=== PATIENT | female | born 1970 | race Caucasian/White ===

== ENCOUNTER 2021-10-25 00:01 | Day surgery (SDC) | payer OTHER, SELFPAY ==
[2021-09-07 09:42] VITALS: BMI 44.6
--- NOTE | 2021-10-25 07:28 | WPDANESEPPF ---
Anes - Initial Pre Proc Eval Procedure: Operation Date: 10/25/21 10:30 Proposed Procedures p Screening Colonoscopy - Clifton Lee MD Date/Time: 10/25/21 07:28 Surgeon: Clifton Lee MD Pre Op Diagnosis: neoplasm screening Patient Data Age: 51 Gender: F Height: 1.63 m Weight: 118 kg Allergies Allergy/AdvReac Type Severity Reaction Status Date / Time codeine Allergy Unknown Nausea Verified 10/25/21 09:32 Home Medications Medication Instructions Recorded Confirmed Type escitalopram oxalate 20 mg tablet 20 tablet PO DAILY 09/07/21 10/10/21 History hydrochlorothiazide 12.5 mg tablet 12.5 tablet PO DAILY 09/07/21 10/10/21 History lisinopril 20 mg tablet 20 tablet PO DAILY 09/07/21 10/10/21 History meloxicam 15 mg tablet 15 tablet PO DAILY 09/07/21 10/10/21 History Patient hx anesthesia problems: none Family hx anesthesia problems: none Results Review: All pre-operative results and documents have been reviewed as part of the pre-operative evaluation. [facility] Past Medical History Medical History (Updated 10/25/21 @ 09:50 by Clifton Lee MD) HTN (hypertension) Morbid obesity with BMI of 40.0-44.9, adult Social History Social History Smoking status: Never smoker Alcohol intake: current Drinks per week: 4 Substance use type: does not use Living arrangements: with family Spiritual care concerns: No Anes - Eval Final PreProcedure Day of Procedure 10/25/21 07:28 Patient weight: morbidly obese Heart: regular rate and rhythm Lungs: clear to auscultation and normal air movement Airway: Mallampati scale class II Neurological: alert and oriented Last oral intake: >/= 8 hours ASA classification: III Emergent: no Anesthetic plan: proceed Anesthesia type and monitoring: general GIVS Results Review: All pre-operative results and documents have been reviewed as part of the pre-operative evaluation. Informed Consent: The patient's anesthetic plan and its attendant risks and benefits were discussed with the patient/family/POA. Questions were solicited and answers provided to the satisfaction of the patient/family/POA.
[2021-10-25 09:29] VITALS: BP 147/100; PULSE 95; RESP 18; TEMP 36.7; O2SAT 100
[2021-10-25] MEDS: LACTATED RINGERS 1,000 ML 150 ML IV CONT (09:39)
--- NOTE | 2021-10-25 09:49 | PM.IMHP ---
H&P: HPI History of Present Illness Date/Time: 10/25/21 09:49 Chief Complaint: Neoplasia screening. Narrative: This is a 51-year-old white female patient seen in evaluation for neoplasia screening. Patient states that her current weight appetite bowel movement are normal. Patient denies abdominal pain. She has had no bleeding. Family history is noncontributory. Patient presents today for neoplasia screening colonoscopy. Review of Systems Review of Systems: Review of systems noncontributory. [facility] Past Medical History Medical History (Updated 10/25/21 @ 09:50 by Clifton Lee MD) HTN (hypertension) Morbid obesity with BMI of 40.0-44.9, adult Social History Social History Smoking status: Never smoker Alcohol intake: current Drinks per week: 4 Substance use type: does not use Living arrangements: with family Spiritual care concerns: No Meds Home Medications and Allergies Home Medications Medication Instructions Recorded Confirmed Type escitalopram oxalate 20 mg tablet 20 tablet PO DAILY 09/07/21 10/10/21 History hydrochlorothiazide 12.5 mg tablet 12.5 tablet PO DAILY 09/07/21 10/10/21 History lisinopril 20 mg tablet 20 tablet PO DAILY 09/07/21 10/10/21 History meloxicam 15 mg tablet 15 tablet PO DAILY 09/07/21 10/10/21 History Allergies Allergy/AdvReac Type Severity Reaction Status Date / Time codeine Allergy Unknown Nausea Verified 10/25/21 09:32 Vital Signs Vital Signs - 24 hr 10/25/21 09:29 Temperature 98.1 F Pulse Rate 95 Respiratory Rate 18 Blood Pressure 147/100 H Pulse Oximetry 100 Oxygen Delivery Room Air Exam Narrative: Physical exam reveals patient to be alert. Vital signs stable. HEENT exam is unremarkable. Patient is anicteric. Lungs are clear to auscultation and percussion. Heart is without murmur or extra sounds. Abdominal exam bowel sounds are present soft nontender with no organomegaly. Digital external rectal exam is normal. Assessment and Plan Assessment and plan (1) Morbid obesity with BMI of 40.0-44.9, adult: Code(s): E66.01 - Morbid (severe) obesity due to excess calories; Z68.41 - Body mass index [BMI] 40.0-44.9, adult Status: Acute Assessment and Plan: Weight loss with increased activity decrease calorie intake is encouraged. (2) Encounter for screening colonoscopy: Code(s): Z12.11 - Encounter for screening for malignant neoplasm of colon Status: Acute Assessment and Plan: Patient presents for neoplasia screening colonoscopy. Appears to be at average risk for colon polyps. Further recommendations will be given after endoscopy.
[2021-10-25 10:13] VITALS: BP 136/88; PULSE 82; RESP 22; O2SAT 99
[2021-10-25 10:23] VITALS: BP 144/90; PULSE 79; RESP 19; O2SAT 100
[2021-10-25 10:33] VITALS: BP 148/98; PULSE 77; RESP 20; O2SAT 100
== END 2021-10-25 10:43 | disposition home or self-care (01) ==
PROVIDERS: PCP Physician Assistant Medical; Visit Provider Internal Medicine Gastroenterology
PROC: 0DJD8ZZ Inspection of Lower Intestinal Tract, Via Natural or Artificial Opening Endoscopic (ICD-10-PCS; CPT 45378; principal; 2021-10-25 10:30)
DX: Z12.11 Encounter for screening for malignant neoplasm of colon (principal); I10 Essential (primary) hypertension; E66.01 Morbid (severe) obesity due to excess calories; Z68.41 Body mass index [BMI] 40.0-44.9, adult
CPT/HCPCS: 45378; J2704; J7120

== ENCOUNTER 2022-09-08 17:20 | Emergency (ER) | payer OTHER, SELFPAY ==
--- NOTE | ~2022-09-08 | XR_ITS ---
EXAMINATION: XR ankle RT min 3V DATE: 09/08/2022 17:48 INDICATION: Right ankle swelling. TECHNIQUE: 4 views of right ankle were obtained. COMPARISON: None. FINDINGS: Bone alignment is normal. No acute fracture. There is severe ankle joint osteoarthritis. Th ere is heterotopic ossification distal to medial malleolus. There is polyarticular osteoarthritis of the midfoot, severe at medial Lisfranc joint. There is an enthesophyte at plantar aspect of calcaneal tuberosity. Ankle soft tissue swelling is noted. There is thickening of the Achilles tendon, consist ent with tendinopathy. IMPRESSION: 1. 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 2. Achilles tendinopathy. Reviewed, dictated and finalized at location E.
[2022-09-08 17:32] VITALS: BP 158/85; PULSE 94; RESP 20; TEMP 36.8; O2SAT 100
--- NOTE | 2022-09-08 17:42 | ED.EXTPRO ---
HPI - Extremity Problem General Chief complaint: Extremity Problem,Nontraumatic Stated complaint: swelling to ankles Time Seen by Provider: 09/08/22 17:48 Source: patient Mode of arrival: ambulatory Limitations: no limitations History of Present Illness HPI Narrative: 52-year-old female presenting for complaint of right ankle pain and swelling for 6 days. She denies injury. She states at the onset she was at an event requiring her to be on her feet, then the following day had a lot of walking, which caused pain. Pain is at rest, worse with ambulating or moving the ankle. Endorses wearing well fitting tennis shoes and has been elevating and icing the ankle all week. Also taking meloxicam for pain. States she contacted a waste chopper, but was unable to be seen for several weeks. Scheduled to f/u with pcp in 4 days. Denies redness, bruising, numbness, tingling, weakness of the extremity. Related Data Home Medications Medication Instructions Recorded Confirmed hydrochlorothiazide 12.5 mg tablet 12.5 tablet PO DAILY 09/07/21 09/08/22 lisinopril 20 mg tablet 20 tablet PO DAILY 09/07/21 09/08/22 meloxicam 15 mg tablet 15 tablet PO DAILY 09/07/21 09/08/22 Allergies Allergy/AdvReac Type Severity Reaction Status Date / Time codeine Allergy Unknown Nausea Verified 09/08/22 17:27 Review of Systems Review of Systems: CONSTITUTIONAL: Denies body aches, fever, chills EYES: Denies visual changes ENT: Denies rhinorrhea, congestion CARDIOVASCULAR: Denies chest pain, palpitations, or edema. RESPIRATORY: Denies cough or dyspnea. GASTROINTESTINAL: Denies abdominal pain, nausea, vomiting, or diarrhea. SKIN: Denies rash, itching, or wounds. MUSCULOSKELETAL: per HPI NEUROLOGIC: Denies headache, numbness, tingling, or weakness. All systems reviewed & are unremarkable except as noted in HPI and below PMFSH Past Medical History Medical History Anxiety and depression HTN (hypertension) Morbid obesity with BMI of 40.0-44.9, adult Screening mammogram, encounter for Surgical History Surgical History H/O colonoscopy 10/25/21-repeat 10 years History of bilateral breast reduction surgery (~1985) History of hernia repair (~2007) History of surgery on right wrist (05/30/16) rt wrist fracture Family History Family History Father Hypertension Heart disease Mother Breast cancer Social History Social History Smoking status: Never smoker Alcohol intake: current Drinks per week: 4 Substance use: never Substance use type: does not use Living arrangements: other Additional living arrangements comments: Occupation/Education: occupation Additional occupation/education comments: teacher Gender identity (if verbalized by the patient): Female Sexual Orientation (if Verbalized by the Patient): Straight or Heterosexual Spiritual care concerns: No Comments At time of signature, I have reviewed and agree with nursing past medical, surgical, social and family history unless otherwise noted. Please see nursing chart for further information. There is no relevant family history pertinent to the presenting complaint Exam Narrative: GENERAL: Well-appearing CHEST: Speaks in full sentences. No respiratory distress. HEART: Regular rate and rhythm. Normal and equal peripheral pulses. EXTREMITIES: Right lateral ankle swelling, no bruising or erythema, nontender malleolus. Right foot has normal sensation; slightly limited strength and range of motion with flexion/extension/rotation due to pain with movement. Tenderness to mid achilles. Raised area to right mid dorsal foot c/w spur. No open wounds, or obvious deformity; alignment normal, pulse palpable and equal bilaterally, skin warm, dry, pink
== END 2022-09-08 18:18 | disposition home or self-care (01) ==
PROVIDERS: Emergency Provider Nurse Practitioner Family; PCP Registered Nurse
DX: M76.61 Achilles tendinitis, right leg (principal); I10 Essential (primary) hypertension; E66.01 Morbid (severe) obesity due to excess calories; Z68.39 Body mass index [BMI] 39.0-39.9, adult
CPT/HCPCS: 73610; 99213; G0463

== ENCOUNTER 2024-02-13 16:18 | Emergency (ER) | payer OTHER, SELFPAY ==
--- NOTE | ~2024-02-13 | XR_ITS ---
EXAMINATION: XR chest 2V Exam Date/Time: 02/13/2024 16:40 CDT HISTORY: Cough, chest congestion Comparison: None. RESULT: Lines, tubes, and devices: None. Lungs and pleura: Clear. Cardiomediastinal silhouette: Unremarkable. Other: No acute osseous or upper abdominal finding. IMPRESSION: No acute cardiopulmonary process. Reviewed, dictated and finalized at location K.
[2024-02-13 16:23] VITALS: BP 139/86; PULSE 85; RESP 20; TEMP 36.6; O2SAT 99
--- NOTE | 2024-02-13 16:23 | ED_ITS ---
HPI - URI/Sore Throat General Chief Complaint: Upper Respiratory Infection Stated Complaint: Sinus Time Seen by Provider: 02/13/24 16:40 Source: patient, RN notes reviewed and old records reviewed Mode of arrival: ambulatory Limitations: no limitations History of Present Illness HPI Narrative: 53-year-old female presents to the [facility] with 2 weeks of sinus congestion, postnasal drainage, sinus pressure. Patient states a couple days ago started with some increased postnasal drainage and a cough. Reports that she feels like she has rattling in her chest. Treatments prior to arrival: cold medicine Related Data Home Medications Medication Instructions Recorded Confirmed hydrochlorothiazide 12.5 mg tablet 12.5 tablet PO DAILY 09/07/21 02/13/24 lisinopril 20 mg tablet 20 tablet PO DAILY 09/07/21 02/13/24 meloxicam 15 mg tablet 15 tablet PO DAILY 09/07/21 02/13/24 Allergies Allergy/AdvReac Type Severity Reaction Status Date / Time codeine Allergy Unknown Nausea Verified 02/13/24 16:20 Review of Systems Review of Systems: All systems reviewed & are unremarkable except as noted in HPI and below Constitutional: Constitutional: Reports no additional constitutional complaints ENT: Reports as per HPI Cardiovascular: Cardiovascular: Reports no additional cardiovascular complaints, Denies chest pain and Denies dyspnea Respiratory: Respiratory: Reports as per HPI, Reports chest congestion, Reports cough and Denies dyspnea Gastrointestinal: Gastrointestinal: Reports no additional gastrointestinal complaints, Denies abdominal pain, Denies nausea and Denies vomiting Musculoskeletal: Musculoskeletal: Reports no additional musculoskeletal complaints Integumentary/Breasts: Skin/Breast: Reports system reviewed and no additional complaints, except as docu PMFSH Past Medical History Medical History Anxiety and depression HTN (hypertension) Morbid obesity with BMI of 40.0-44.9, adult Screening mammogram, encounter for Surgical History Surgical History H/O colonoscopy 10/25/21-repeat 10 years History of bilateral breast reduction surgery (~1985) History of hernia repair (~2007) History of surgery on right wrist (05/30/16) rt wrist fracture Family History Family History Father Hypertension Heart disease Mother Breast cancer Social History Social History Smoking status: Never smoker Alcohol intake: current Drinks per week: 4 Substance use: never Substance use type: does not use Living arrangements: other Additional living arrangements comments: Occupation/Education: occupation Additional occupation/education comments: teacher Gender identity (if verbalized by the patient): Female Sexual Orientation (if Verbalized by the Patient): Straight or Heterosexual Spiritual care concerns: No Comments At the time of my signature, I reviewed and agree with the nursing past medical, surgical, social, and family history. There is no relevant family history pertinent to the patient complaint. Exam Const: General: cooperative, healthy appearing, comfortable, no acute distress, well developed, alert and well nourished Nutritional Appearance: well nourished and obese Orientation/consciousness: patient oriented x3 Limitations: no limitations HENMT: Head: normal to inspection Ears: hearing grossly normal bilaterally, external ears normal, TM's normal bilaterally, EAC's normal, mastoids normal and no periauricular adenopathy Face/Nose/Sinus: Normal external nose present, normal facial exam and face symmetric Face and sinus: normal facial exam and face symmetric Mouth: Yes Normal oral and palatal mucosa present, Yes lip normal and Yes tongue normal Throat: uvula midline, postnasal drainage and no uvular edema Eyes: General: appearance normal, both eyes and all related structures Alignment and Position: alignment normal Periorbital: periorbital findings normal Neck: Neck: normal visual inspection, full ROM, no lymphadenopathy and no meningeal signs Chest: Chest palpation & inspection: normal inspection of the chest Resp: Effort & Inspection: normal respiratory effort and able to speak in complete sentences Auscultation: no crackles, no rales, no rhonchi and wheezes expiratory wheezes and right lower Cardio: Rate: regular rate Skin: General skin exam: normal color and no rashes or lesions noted Lesions: no lesions Rashes: no rashes Wounds: no wounds Neuro: General: patient oriented x3, gait normal, tone normal, moves all extremities and no meningeal signs Cognition (Neuro): normal cognition Speech: normal speech Gait exam (Neuro): Normal gait present Extrem: General: normal to inspection, full ROM, capillary refill normal and normal gait Psych: Appearance: grossly normal and well kempt Mental Status: mental status grossly normal Speech and movement: Normal speech and movement present and Clear speech present Affect: normal affect Attitude: cooperative Course Course Level of Care: Express Care Visit Vital Signs Vital signs: Vital Signs Temperature 98 F 02/13/24 16:23 Pulse Rate 85 02/13/24 16:23 Respiratory Rate 20 02/13/24 16:23 Blood Pressure 139/86 02/13/24 16:23 Pulse Oximetry 99 02/13/24 16:23 Oxygen Delivery Room Air 02/13/24 16:23 Temperature 98 F 02/13/24 16:23 Pulse Rate 85 02/13/24 16:23 Respiratory Rate 20 02/13/24 16:23 Blood Pressure 139/86 02/13/24 16:23 Pulse Oximetry 99 02/13/24 16:23 Oxygen Delivery Room Air 02/13/24 16:23 Reviewed MDM - URI/Sore Throat MDM Narrative Medical decision making narrative: Patient sitting comfortably in exam room. Nontoxic, vitals stable. Patient in no acute distress Patient presents with 2 week history of sinus congestion, developed cough, concern for pneumonia Treating based on 2 weeks sinusitis, x-ray was negative for pneumonia Patient appropriate for outpatient treatment and follow-up Discharge instructions reviewed with patient, as well as provided in writing per nursing staff. The instructions also include specific and strict return/GO TO THE ER as well as f/u information. All questions have been answered, and the patient deny any further questions with discharge and discharge plan. Some parts of this dictation were generated by voice recognition software and may contain typographical and/or grammatical inaccuracies. Differential Diagnosis Differential diagnosis: Likely upper respiratory infection, otitis media, sinusitis, viral infection and bronchitis Imaging Data Radiologist's impression: EXAMINATION: XR chest 2V Exam Date/Time: 02/13/2024 16:40 CDT HISTORY: Cough, chest congestion Comparison: None. RESULT: Lines, tubes, and devices: None. Lungs and pleura: Clear. Cardiomediastinal silhouette: Unremarkable. Other: No acute osseous or upper abdominal finding. IMPRESSION: No acute cardiopulmonary process. Critical Care Time Critical Care Time Critical Care Time: No Discharge Plan Discharge Clinical Impression: Bronchitis, Sinusitis Patient Disposition: Home, Self-Care Condition: Stable Instructions: Antibiotic Form, Acute Bronchitis (ED), Rhinosinusitis (DC) Additional Instructions: Your chest x-ray did not show signs of a pneumonia. Your symptoms are likely due to a viral illness, which is not treated with antibiotics. Viral symptoms are usually the worst the for 7-10 days, can linger for several weeks -Alternate Tylenol and Motrin per package directions for fever or pain. -Antihistamine medication such as Benadryl at night and Zyrtec/Claritin/Love during the day can help improve symptoms. -doing daily nasal irrigations can help relieve pressure your sinuses. Things like a Neti pot -Use Flonase twice a day for 5 days then daily to help reduce the inflammation and dry up your sinuses. -You can also use Mucinex. Be sure to drink plenty of water with this medication at least 8 ounces with every dose and it is important to drink 8 to 10 glasses of water per day. Water is a natural decongestant -Eat and drink things that are easy to swallow, like tea or soup, or popsicles. -Oral rinses such as: Salt water gargles and/or may use topical anesthetic (eg. Chloraseptic spray) or lozenges to relieve dryness or throat pain). -Frequent hand washing or hand hiv cts specialist is one of the best ways to prevent spread of infection. -Using a vaporizer or humidifier at night will also help thin secretions and help with coughing up phlegm. -Follow up with primary care provider in 3-5 days if condition is not improving - For new or worsening symptoms go directly to the nearest ER Patient Language: Angolan Prescriptions: New albuterol sulfate 90 mcg/actuation HFA aerosol inhaler 2 puff inhalation QID PRN (Reason: shortness of breath or wheezing) Qty: 6.7 0RF doxycycline monohydrate 100 mg tablet 100 mg PO BID Qty: 14 0RF No Action meloxicam 15 mg tablet 15 tablet PO DAILY lisinopril 20 mg tablet 20 tablet PO DAILY hydrochlorothiazide 12.5 mg tablet 12.5 tablet PO DAILY escitalopram oxalate 20 mg tablet 20 mg PO DAILY Qty: 90 0RF Rx Instructions: needs appointment for any further refills Follow-up/Referrals: Deanna,BLOSSOM Stark [Primary Care Provider] - 2 Weeks ([facility] care follow up ) Stand Alone Forms: Work/School Release IP Time of Disposition: 16:51
== END 2024-02-13 17:00 | disposition home or self-care (01) ==
PROVIDERS: Emergency Provider Nurse Practitioner; PCP Registered Nurse
DX: J40 Bronchitis, not specified as acute or chronic (principal); J32.9 Chronic sinusitis, unspecified; I10 Essential (primary) hypertension; E66.01 Morbid (severe) obesity due to excess calories; Z68.37 Body mass index [BMI] 37.0-37.9, adult
CPT/HCPCS: 71046; 99213; G0463

== ENCOUNTER 2024-12-05 11:43 | Outpatient (CLI) | payer OTHER, SELFPAY ==
--- OUTSIDE RECORDS SUMMARY | 2024-12-05 11:47 | XMS_ITS | Clinical Summary ---
Author Organization [facility] [employer] Address [address] [facility] [place] [address] Care Team Providers Care Director Loss Prevention Name Role Phone DeannaMi Anna AMBROCIO-CLAM DIGGER Primary Care Provider Source Comments [facility],non-owned Affiliates and Associated Physician Practices is amultiple site organization consisting of ambulatory clinics and hospital sitesin [place], [place], [place] and [place]. This disclosure is being madepursuant to the Care Everywhere program and may not contain all information available regarding this patient. Last updated 18.[facility] Allergies Active Allergy Reactions Criticality Noted Date Comments Codeine Dizziness,Nausea and /or Vomiting,Unknown,Vomiting 01/14/1986 Medications * Be aware that medications may not be up to date on this document. Alwaysverify current medications with the patient. lisinopril (PRINIVIL; ZESTRIL) 20 MG tablet 09/09/19 22 Active hydroCHLOROthiazid e (HYDRODIURIL) 12.5 MG 09/09/19 22 Active escitalopram (Lexapro) 20 MG tablet 04/21/19 23 Active buPROPion XL 24hr (Wellbutrin-XL) 150 MG tablet 08/02/19 24 Active metFORMIN ER 24hr (Glucophage XR) 500 MG tablet Take 1 (one) tablet by mouth daily with dinner 07/28/19 24 Active aspirin (Aspirin) 325 MG tablet Take 1 (one) tablet by mouth once daily 35 tablet 08/27/19 24 Active docusate sodium (Colace) 100 MG capsule Take 1 (one) capsule by mouth once daily 30 capsule 08/27/19 24 Active Additional Information Patient not taking.Reported on 01/23/2024 oxyCODONE-acetamin ophen (Percocet) 10-325 MG tabletIndications: Acute right ankle pain Take 1 (one) tablet by mouth every 6 hours as needed for Pain 42 tablet 08/27/19 24 Active ondansetron, disintegrating, (Zofran ODT) 4 MG tablet Take 2 (two) tablets by mouth every 8 hours as needed for Nausea/Vomiting Allow tablet to dissolve on the tongue 30 tablet 08/27/19 24 Active sulfamethoxazole-t rimethoprim (Bactrim DS; Septra DS) 800-160 MG tablet Take 1 (one) tablet by mouth 2 times daily 28 tablet 10/16/19 24 Active Additional Information Patient not taking.Reported on 01/23/2024 LORazepam (Ativan) 0.5 MG tablet TAKE 1 TABLET(0.5 MG) BY MOUTH EVERY 6 HOURS NEEDED FOR ANXIETY 11/07/19 24 Active Semaglutide (1 MG/DOSE) 4 MG/3ML Subcutaneous Solution Pen-injector (Ozempic) Inject 1 (one) mg subcutaneously every 7 days 01/14/20 24 Active meloxicam (Mobic) 15 MG tabletIndications: Primary osteoarthritis of left knee TAKE 1 TABLET DAILY 90 tablet 3 03/03/20 24 Active Active Problems Problem Noted Date Diagnosed Date Acute right ankle pain 08/27/2023 Immunizations Immunization Administration Dates Next Due INFLUENZA VACCINE 01/13/2021,01/25/2018 INFLUENZA VACCINE, QUADR. (F LUZONE; FLULAVAL; FLUARIX; AFLURIA QUADRIVALENT; 6MO+), 0.5 ML (IIV4) 12/29/2019,01/27/2019 TDAP (7yrs+) 12/19/2019,01/27/2019 Social History Tobacco Use Types Packs/Day Years Used Date Smoking Tobacco: Never Smokeless Tobacco: Never Alcohol Use Standard Drinks/Week Comments Yes 0 (1 standard drink = 0.6 oz pur e alcohol) socially AUDIT-C Answer Date Recorded Q1: How often do you have a drink containing alc ohol? 2-3 times a week 08/27/2023 Q2: How many drinks containi ng alcohol do you have on a typical day when you are drinking? 1 or 2 08/27/2023 Q3: How often do you have si x or more drinks on one occasion? Never 08/27/2023 PHQ-2 Answer Date Recorded Patient Health Questionnaire-2 Score 0 01/23/2024 Comments No Sex and Gender Information Value Date Recorded Sex Assigned at Female 02/18/2022 3:51 PM CDT Legal Sex Female 6:29 AM PHYSICIAN OFFICE REP Gender Identity Female 02/18/2022 3:51 PM CDT Sexual Orientation Not on file Last Filed Vital Signs Vital Sign Reading Time Taken Comments Blood Pressure 157/96 08/28/2023 9:08 AM CDT after amb. therapy Pulse 82 08/28/2023 9:08 AM CDT Temperature 36.8 C (98.3 F) 08/28/2023 7:53 AM CDT Respiratory Rate 16 08/28/2023 10:5 7 AM CDT Oxygen Saturation 100% 08/28/2023 9:0 8 AM CDT Inhaled Oxygen Concentration - - Weight 107.5 kg (237 lb) 01/23/2024 9:2 6 AM CDT Height 162.6 cm (5' 4) 01/23/2024 9:26 AM CDT Body Mass Index 40.68 01/23/2024 9:26 AM CDT Plan of Treatment Health Maintenance Due Date Last Done Comments COLOGUARD (AGES 45-75) - COLON CA SCREENING 1968 COLON MONITORING 1968 COLONOSCOPY - COLON CA SCREENING 1968 CT COLONOGRAPHY - COLON CA SCREENING 1968 Colorectal Cancer Screening 1968 FIT - COLON CA SCREENING 1968 FLEX SIG - COLON CA SCREENING 1968 HIV SCREENING 1983 HEPATITIS C SCREENING 04/26/1986 HEPATITIS B VACCINE (1 of 3 - 19+ 3-dose series) 1987 PAP SMEAR 1989 PNEUMOCOCCAL VACCINE 50+ (1 of 1 - PCV) 2018 ZOSTER VACCINE (1 of 2) 2018 COVID-19 VACCINE ( - season) 2023 02/24/2021, 06/18/2020, 05/21/2020 DEPRESSION SCREENING 04/16/2024 07/18/2023 MAMMOGRAM 06/19/2024 06/19/2022, 080 08/2020, 10/28/2019 INFLUENZA VACCINE (#1) 2024 4, 01/13/2021, 12/29/2019, Additional history exists SCREENING FOR DIABETES 12/12/2026 4, 08/28/2023, 08/27/2023, Additional history exists LIPID TESTING 08/16/2028 08/17/2023, 040 09/2022, 07/30/2021 DTAP/TDAP/TD VACCINES (3 - Td or Tdap) 12/18/2029 12/19/2019, 01/27/2019 HIB VACCINE Aged Out No longer eligi ble based on patient's age to complete this topic HPV VACCINE Aged Out No longer eligi ble based on patient's age to complete this topic MENINGOCOCCAL (Group B) VACCINE SHARED DECISION-MAKING Aged Out No longer eligible based on patient's age to complete this topic MENINGOCOCCAL GROUPS A/C/Y/W VACCINE Aged Out No longer eligible based on patient's age to complete this topic Medical Devices Implanted Type Area Regional Director Of Admissions Device Identifier Shelf Expiration Date Model / Serial / Lot Kit Bngf c Nov Implanted:Qty: 1 on 08/27/2023 by Sariah Reyes MD at [facility] Right: Foot [employer] 04/12/2026 [id number] / / [id number] Screw 4.5mm 28mm Slf-Tap Pa Lck On [place] Implanted:Qty: 1 on 08/27/2023 by Sariah Reyes MD at [facility] Right: Foot [employer] [id number] / / Screw 4.5mm 30mm Lopro Lck Ft/Ankl Yash Implanted:Qty: 1 on 08/27/2023 by Sariah Reyes MD at [facility] Right: Foot [employer] [id number] / / Screw 4.5mm 36mm Slf-Tap Pa Lck On [place] Implanted:Qty: 1 on 08/27/2023 by Sariah Reyes MD at [facility] Right: Foot [employer] [id number] / / Screw 4.5mm 26mm 3di Tch Lck Pa Yash Implanted:Qty: 1 on 08/27/2023 by Sariah Reyes MD at [facility] Right: Foot [employer] [id number] / / Graft Snth Tissue Dbm 20cc Mini Ignite - [id number] Implanted:Qty: 1 on 08/27/2023 by Sariah Reyes MD at [facility] Right: Foot [employer] 03/03/2026 [id number] / [id number] / Graft Bone Canc 4-9.5mm 15cc [facility] - [id number] Implanted:Qty: 1 on 08/27/2023 by Sariah Reyes MD at [facility] Right: Foot [employer] 02/19/2028 [id number] / [id number] / Screw 7mm 40mm St Comp Hdls Midfoot Implanted:Qty: 1 on 08/27/2023 by Sariah Reyes MD at [facility] Right: Foot [employer] [id number] / / Screw 7mm 35mm St Comp Hdls Midfoot Implanted:Qty: 1 on 08/27/2023 by Sariah Reyes MD at [facility] Right: Foot [employer] [id number] / / Plate 3 Hl Shft 1 Comp Hl Fsn Tibi[employer] Implanted:Qty: 1 on 08/27/2023 by Sariah Reyes MD at [facility] Right: Foot [employer] [id number] / / 5.5 X 30 Bone Screw Implanted:Qty: 1 on 08/27/2023 by Sariah Reyes MD at [facility] Right: Foot [employer] [id number] / / Explanted Type Area Regional Director Of Admissions Device Identifier Shelf Expiration Date Model / Serial / Lot Wire K 2.5mm 270mm Fx Explanted:Qty: 2 on 08/27/2023 by Sariah Reyes MD at [facility] Right: Foot [employer] [id number] / / Pin Fx 2mm [employer] Temp Explanted:Qty: 2 on 08/27/2023 by Sariah Reyes MD at [facility] Right: Foot [employer] [id number] / / Procedures Procedure Name Priority Date/Time Associated Diagnosis Comments GLUCOSE - POINT OF CARE Routine 08/28/2023 7:54 AM CDT from Last 3 Months or Most Recently Relevant to Health Maintenance Results * GLUCOSE - POINT OF CARE (08/28/2023 7:54 AM CDT) [facility] Glucose WB/POC 99 70 - 106 mg/dL 08/28/2023 8:04 AM CDT [facility] Specimen Type Cap Fingerstick 2023 8:04 AM CDT [facility] Blood BLOOD SPECIMEN / Unknown 08/28/2023 7:54 AM CDT 08/28/2023 8:04 AM CDT Sariah Reyes MD LAB - POINT OF CARE ORDERABL ES Final Result [facility] [address] [facility] [place] [address] from Last 3 Months or Most Recently Relevant to Health Maintenance Insurance [address] [facility] Advance Directives * Full Code (Latest Code Status on File) Date Activated Date Inactivated Comments 08/27/2023 4:48 PM 08/28/2023 1:34 PM Care Teams Director Loss Prevention Relationship Specialty Start Date End Date Mi Huerta, BRIQUETTE MACHINE OPERATOR-DYLON [address] [place] [id number] PCP - General 08/29/21
--- OUTSIDE RECORDS SUMMARY | 2024-12-05 11:47 | XMS_ITS | Encounter Summary ---
Author Organization [facility] Address [address] [facility] [place] [address] Care Team Providers Care Stripper Cutter Machine Name Role Phone Mi Huerta FORGING MACHINE OPERATOR-VICE PRESIDENT QUALITY IMPROVEMENT Primary Care Provider Encounter Details Date Type Department Care Team (Late st Contact Info) Description 09/25/2022 Lab Requisition [facility] - DermPath Lab [address] [facility] [place] [address] Libertad Butcher PA-C [address] [place] [address] Neoplasm of uncertain behavior of skin Social History Tobacco Use Types Packs/Day Years Used Date Smoking Tobacco: Never Smokeless Tobacco: Never Alcohol Use Standard Drinks/Week Comments Yes 0 (1 standard drink = 0.6 oz pur e alcohol) socially Comments Unknown Sex and Gender Information Value Date Recorded Sex Assigned at Female 02/18/2022 3:51 PM CDT Legal Sex Female 6:29 AM TEA BAG MACHINE TENDER Gender Identity Female 02/18/2022 3:51 PM CDT Sexual Orientation Not on file documented as of this encounter Plan of Treatment Not on file documented as of this encounter Procedures Procedure Name Priority Date/Time Associated Diagnosis Comments DERMATOPATHOLOGY Routine 09/25/2022 12:0 0 AM CDT Neoplasm of uncertain behavior of skin [ICD-10-CM] documented in this encounter Results * DERMATOPATHOLOGY (09/25/2022 12:00 AM CDT) Case Report Dermatopathology Report Case: [id number] Authorizing Provider: Libertad Butcher PA-C Collected: 09/25/2022 12:00 AM Ordering Location: [facility] DermPath Lab Received: 09/26/2022 11:36 AM Pathologist: Siobhan Tavera MD Specimens: A) - Skin, left distal thigh medial B) - Skin, left distal thigh lateral C) - Skin, right upper back 2:49 PM CDT DERMATOPATHOLOGY LABORATORY Final Diagnosis Specimen A. SKIN, left distal thigh medial: ACTINIC KERATOSIS (L57.0) Specimen B. SKIN, left distal thigh lateral: ACTINIC KERATOSIS, ERODED (L57.0) Specimen C. SKIN, right upper back: DERMATOFIBROMA (D23.9) 2:49 PM CDT DERMATOPATHOLOGY LABORATORY at 1448 CDT Clinical History A-B: Squamous Cell Carcinoma in situ C: Atypical Nevus 3 2:49 PM CDT DERMATOPATHOLOGY LABORATORY Gross Description Specimen A: Received is one formalin filled container labeled with the patient's name and designated left distal thigh medial. The specimen consists of a shave biopsy measuring 7x6x1 mm. Jar 0. Specimen B: Received is one formalin filled container labeled with the patient's name and designated left distal thigh lateral. The specimen consists of a shave biopsy measuring 10x9x1 mm. Jar 0. Specimen C: Received is one formalin filled container labeled with the patient's name and designated right upper back. The specimen consists of a shave biopsy measuring 9x7x1 mm. Jar 0. 3 2:49 PM CDT DERMATOPATHOLOGY LABORATORY Microscopic Description Specimen A. SKIN, left distal thigh medial: There is focal parakeratosis. The lower half of the epidermis shows disorderly maturation of keratinocytes with nuclear pleomorphism. Specimen B. SKIN, left distal thigh lateral: There is alternating orthokeratosis and parakeratosis. The epidermis is focally eroded. Along the undersurface of the epidermis, there are buds of atypical keratinocytes in a disorderly arrangement. Specimen C. SKIN, right upper back: There is epidermal hyperplasia. Within the dermis, there are fibrohistiocytic cells in haphazard array among coarse collagen bundles. 3 2:49 PM CDT DERMATOPATHOLOGY LABORATORY Disclaimer An external and internal positive and negative controls are appropriate for the histochemical, immunohistochemical and immunofluorescence stain(s) in this case (if any), except where stated explicitly. The performance characteristics of the stain(s) cited in this report were developed and its performance characteristic determined by the Dermatopathology Laboratory at [facility], directed by Dr. Steffi Aponte. These tests need not be, and therefore are not, approved by the [place] Food and Drug Administration. The tests are used for clinical purposes. Billing Codes Specimen Charges Stain Charges 54006 77429 06377 1 1 1 3 2:49 PM CDT DERMATOPATHOLOGY LABORATORY Embedded Images 3 2:49 PM CDT DERMATOPATHOLOGY LABORATORY Pathology/Cytology TISSUE SPECIMEN FROM SKIN / Unknown 09/25/2022 09/26/2022 11:36 AM CDT Miscellaneous samples (specimen) TISSUE SPECIMEN FROM SKIN / Unknown 09/25/2022 09/26/2022 11:36 AM CDT Miscellaneous samples (specimen) TISSUE SPECIMEN FROM SKIN / Unknown 09/25/2022 09/26/2022 11:36 AM CDT Libertad Butcher PA-C LAB - PATHOLOGY/CYTOLOGY KASANDRA CAMPBELL Final Result DERMATOPATHOLOGY LABORATORY [facility] - Department of Dermatology [facility] [address] [place] [address], [address] [phone] documented in this encounter Visit Diagnoses Diagnosis Neoplasm of uncertain behavior of skin documented in this encounter Care Teams Stripper Cutter Machine Relationship Specialty Start Date End Date Mi Huerta, FORGING MACHINE OPERATOR-VICE PRESIDENT QUALITY IMPROVEMENT [address] [place] [id number] PCP - General 08/29/21 documented as of this encounter
--- OUTSIDE RECORDS SUMMARY | 2024-12-05 11:47 | XMS_ITS | Encounter Summary ---
Author Organization [facility] Address [address] [place] [address] Care Team Providers Care Dimmer Board Operator Name Role Phone Mi Huerta ASBESTOS TEXTILE SUPERVISOR-CERTIFIED MASSAGE THERAPIST Primary Care Provider Reason for Visit * Reason Onset Date Comments Appointment 06/08/2023 Spk to [place], stated she was to receive a call about her next appointment and cat scan. Also questions when surgery will be scheduled, as she wants to plan for the date. She would like a callback [phone] Encounter Details Date Type Department Care Team (Late st Contact Info) Description 06/08/2023 Telephone [facility] - Centralized Scheduling [address] [place] [address] [place] [id number] [facility] [address] [place] [address] Appointment (Spk to [place], stated she was to receive a call about her next appointment and cat scan. Also questions when surgery will be scheduled, as she wants to plan for the date. She would like a callback [phone]) Social History Tobacco Use Types Packs/Day Years Used Date Smoking Tobacco: Never Smokeless Tobacco: Never Alcohol Use Standard Drinks/Week Comments Yes 0 (1 standard drink = 0.6 oz pur e alcohol) socially Comments Unknown Sex and Gender Information Value Date Recorded Sex Assigned at Female 02/18/2022 3:51 PM CDT Legal Sex Female 6:29 AM TRAVEL REGISTERED NURSE PACU Gender Identity Female 02/18/2022 3:51 PM CDT Sexual Orientation Not on file documented as of this encounter Miscellaneous Notes * Telephone Encounter - Mayela Moreau - 06/08/2023 12:43 PM CST Spk to [place], stated she was to receive a call about her next appointment and cat scan. Also questions when surgery will be scheduled, as she wants to plan for the date. She would like a callback [phone] EL REGISTERED NURSE PACU documented in this encounter Plan of Treatment Not on file documented as of this encounter Visit Diagnoses Not on filedocumented in this encounter Care Teams Dimmer Board Operator Relationship Specialty Start Date End Date Mi Huerta, ASBESTOS TEXTILE SUPERVISOR-CERTIFIED MASSAGE THERAPIST [address] [place] [id number] PCP - General 08/29/21 documented as of this encounter
--- OUTSIDE RECORDS SUMMARY | 2024-12-05 11:47 | XMS_ITS | Encounter Summary ---
Author Organization [facility] Address [address] [place] [address] Care Team Providers Care Medical Transcriptionist Name Role Phone Mi Huerta OR NURSE MANAGER-TOP CARRIER Primary Care Provider Reason for Visit * Reason Onset Date Comments MEDICATION REFILL 10/08/2023 Encounter Details Date Type Department Care Team (Late st Contact Info) Description 10/08/2023 Refill [facility] - Orthopedic Surgery [address] [place] [address] Bharathi Barajas MD [address] [facility] [address] [place], [place] [phone] MEDICATION REFILL Social History Tobacco Use Types Packs/Day Years [...] Date Recorded Patient Health Questionnaire-2 Score 0 10/10/2023 Comments No Sex and Gender Information Value Date Recorded Sex Assigned at Female 02/18/2022 3:51 PM CDT Legal Sex Female 6:29 AM SPINDLE CARVER Gender Identity Female 02/18/2022 3:51 PM CDT Sexual Orientation Not on file documented as of this encounter Functional Status * Over the past 2 weeks, how often have you been bothered by any of the following problems? Question Answer Date of Assessment Author Patient Health Questionnaire-2 Score 0 10/10/2023 10:08 AM CDT Mychart, Proce ss Support User * Little interest or pleasure in doing things Answer Date of Assessment Author Not at all 10/10/2023 10:08 AM CDT Mychart, Process Support User * Feeling down, depressed, or hopeless Answer Date of Assessment Author Not at all 10/10/2023 10:08 AM CDT Mychart, Process Support User documented as of this encounter Plan of Treatment Not on file documented as of this encounter Visit Diagnoses Diagnosis Primary osteoarthritis of left knee Primary localized osteoarthrosis, lower leg documented in this encounter Care Teams Medical Transcriptionist Relationship Specialty Start Date End Date Mi Huerta, OR NURSE MANAGER-TOP CARRIER [address] [place] [id number] PCP - General 08/29/21 documented as of this encounter
--- NOTE | 2024-12-05 12:00 | ECG_ITS ---
Test Date: 2024-12-05 12:07:40 Measurements Intervals [place] Rate: 67 P: -16 IL: 171 QRS: -19 QRSD: 100 T: 16 QT: 403 QTc: 427 Interpretive Statements SINUS RHYTHM LOW QRS VOLTAGE IN PRECORDIAL LEADS BORDERLINE R WAVE PROGRESSION, ANTERIOR LEADS BORDERLINE ECG No previous ECG available for comparison Electronically Signed On 12-05-2024 12:12:34 CDT by Iván Du D.O.
[2024-12-05 12:05] LABS: Hematocrit 41.1 % (37.0-47.0); Hemoglobin 13.3 g/dL (12.0-15.0); Immature Granulocyte Percent A 0.5 % (0-0.5); Lymphocytes Absolute Auto 1.28 K/mm3 (0.9-3.2); Mean Corpuscular HGB Conc 32.4 g/dl (32-36); Mean Corpuscular Hemoglobin 29.4 pg (26-34); Mean Corpuscular Volume 90.9 fl (80-100); Nucleated Red Blood Cells Absolute Auto 0.000 K/mm3 (0.0-0.012); Nucleated Red Blood Cells Perc 0.0 % (0.0-0.2); Platelet Count Result 350 k/mm3 (150-375); Red Blood Count 4.52 M/mm3 (4.2-5.4); White Blood Count 6.5 K/mm3 (4.5-10.0)
[2024-12-05 12:24] LABS: Anion Gap 11 mmol/L (4-12); Blood Urea Nitrogen 20 mg/dL (7-17); Calcium 9.7 mg/dL (8.4-10.2); Carbon Dioxide 25 mmol/L (22-30); Chloride 99 mmol/L (98-107); Estimated Glomerular Filt Rate > 60; Glucose 95 mg/dL (65-110); Potassium 4.6 mmol/L (3.4-5.0); Sodium 135 mmol/L (137-145)
[2024-12-05 12:50] LABS: Add Urine Microscopic? YES; Appearance Urine Clear (Clear); Glucose Urine UA Negative (Negative); Leukocyte Esterase Ur Trace LEU/UL (Negative); Nitrate Urine Negative (Negative); Non Pathogenic Casts 0-2; Specific Grav Ur 1.023 (1.001-1.035)
== END 2024-12-05 11:44 | disposition home or self-care (01) ==
PROVIDERS: PCP Registered Nurse; Visit Provider Nurse Practitioner Family
DX: R73.03 Prediabetes (principal); I10 Essential (primary) hypertension; R53.83 Other fatigue
CPT/HCPCS: 36415; 80048; 81001; 85025; 93005

== ENCOUNTER 2025-02-02 07:56 | Outpatient (CLI) | payer OTHER, SELFPAY ==
--- OUTSIDE RECORDS SUMMARY | 2025-02-02 08:07 | XMS_ITS | Encounter Summary ---
Author Organization [facility] Address [address] [place] [address] Care Team Providers Care County Supervisor Name Role Phone Mi Huerta PATIENT REGISTRATION REPRESENTATIVE-RUG WASHER Primary Care Provider Reason for Visit * Reason Onset Date Comments MEDICATION REFILL 10/08/2023 Encounter Details Date Type Department Care Team (Late st Contact Info) Description 10/08/2023 Refill [facility] - Orthopedic Surgery [address] [place] [address] Bharathi Barajas MD [address] [facility] [address] [place], [place] [phone] MEDICATION REFILL Social History Tobacco Use Types [...] PM CDT Legal Sex Female 6:29 AM BAKER TEST Gender Identity Female 02/18/2022 3:51 PM CDT [...] leg documented in this encounter Care Teams County Supervisor Relationship Specialty Start Date End Date Mi Huerta, PATIENT REGISTRATION REPRESENTATIVE-RUG WASHER [address] [place] [id number] PCP - General 08/29/21 documented as of this encounter
--- OUTSIDE RECORDS SUMMARY | 2025-02-02 08:07 | XMS_ITS | Encounter Summary ---
Author Organization [facility] Address [address] [address] Care Team Providers Care Mail Processing Machine Operator Name Role Phone Mi Huerta TECHNICIAN TELECOMMUNICATION SYSTEMS-SHEAR TENDER Primary Care Provider Reason for Visit * Reason Onset Date Comments Appointment 06/08/2023 Spk to [place], stated she was to receive a call about her next appointment and cat scan. Also questions when surgery will be scheduled, as she wants to plan for the date. She would like a callback [phone] Encounter Details Date Type Department Care Team (Late st Contact Info) Description 06/08/2023 Telephone [facility] - Centralized Scheduling [address] [place] [address] [place] [address] [facility] [address] [place] [address] Appointment (Spk to [place], stated she was to receive a call about her next appointment and cat scan. Also questions when surgery will be scheduled, as she wants to plan for the date. She would like a callback [phone]) Social History Tobacco Use Types Packs/Day Years Used Date Smoking Tobacco: Never Smokeless Tobacco: Never Alcohol Use Standard Drinks/Week Comments Yes 0 (1 standard drink = 0.6 oz pur e alcohol) socially Comments Unknown Sex and Gender Information Value Date Recorded Sex Assigned at Female 02/18/2022 3:51 PM CDT Legal Sex Female 6:29 AM AUXILIARY OPERATOR Gender Identity Female 02/18/2022 3:51 PM CDT Sexual Orientation Not on file documented as of this encounter Miscellaneous Notes * Telephone Encounter - Mayela Moreau - 06/08/2023 12:43 PM CST Spk to [place], stated she was to receive a call about her next appointment and cat scan. Also questions when surgery will be scheduled, as she wants to plan for the date. She would like a callback [phone] LIARY OPERATOR documented in this encounter Plan of Treatment Not on file documented as of this encounter Visit Diagnoses Not on filedocumented in this encounter Care Teams Mail Processing Machine Operator Relationship Specialty Start Date End Date Mi Huerta, TECHNICIAN TELECOMMUNICATION SYSTEMS-SHEAR TENDER [address] [place] [id number] PCP - General 08/29/21 documented as of this encounter
--- OUTSIDE RECORDS SUMMARY | 2025-02-02 08:07 | XMS_ITS | Clinical Summary ---
Author Organization [facility] Address [address] [place] [address] Care Team Providers Care Outbound Telemarketing Representative Name Role Phone Mi Huerta BAKARI Primary Care Provider Allergies Active Allergy Reactions Criticality Noted Date Comments Codeine Dizziness,Nausea and Vomiting,Unknown,Vomiting 01/14/1986 Medications MELOXICAM 15 MG tabletIndications: Chronic pain of left knee TAKE 1 TABLET(15 MG) BY MOUTH DAILY 30 tablet 2 2 Active escitalopram (LEXAPRO) 20 MG tabletIndications: Anxiety Take 1 tablet (20 mg total) by mouth daily. 90 tablet 3 3 Active LORazepam (ATIVAN) 0.5 MG tabletIndications: Anxiety Take 1 tablet (0.5 mg total) by mouth every 6 (six) hours as needed for Anxiety. 15 tablet 5 Active hydroCHLOROthiazid e (MICROZIDE) 12.5 MG tabletIndications: Essential hypertension TAKE 1 TABLET EVERY MORNING 90 tablet 3 5 Active metFORMIN ER (GLUCOPHAGE-XR) 500 MG 24 hr tabletIndications: Type 2 diabetes mellitus with hyperglycemia, without long-term current use of insulin (CMS/HCC HHS/HCC) TAKE 1 TABLET DAILY WITH BREAKFAST 90 tablet 3 5 Active buPROPion XL (WELLBUTRIN XL) 150 MG 24 hr tabletIndications: Anxiety TAKE 1 TABLET DAILY 90 tablet 3 5 Active atorvastatin (LIPITOR) 10 MG tabletIndications: Mixed hyperlipidemia Take 1 tablet (10 mg total) by mouth nightly at bedtime. 90 tablet 3 5 Active lisinopril (PRINIVIL) 20 MG tabletIndications: Essential hypertension TAKE 1 TABLET(20 MG) BY MOUTH DAILY 90 tablet 1 5 Active semaglutide (OZEMPIC) 2 mg/dose injection (PEN)Indications:D iabetes Mellitus Inject 2 mg into the skin once a week. Indications: Diabetes 3 mL 5 5 Active Active Problems Problem Noted Date Diagnosed Date Type 2 diabetes mellitus wit h hyperglycemia, without long-term current use of insulin 06/27/2023 Mixed hyperlipidemia 02/18/2019 Hyperglycemia 02/18/2019 Hypertension 01/27/2019 Anxiety 01/27/2019 Osteoarthritis of left knee 01/27/2019 Resolved Problems Problem Noted Date Diagnosed Date Resolved Date BMI 45.0-49.9, adult 01/27/201906 023 Encounters Date Type Department Care Team Description 01/13/2025 MyChart Message Enc [facility] Family & Internal [address] [address] Mi Huerta APNP surgery paperwork 01/09/2025 11:20 AM CDT Office Visit [facility] Family Internal [address] [address] Mi Huerta APNP Surgical Clearance 01/09/2025 Travel 12/30/2024 MyChart Message Enc [facility] Family & Internal [address] [address] Mi Huerta APNP Surgery scheduled 12/16/2024 MyChart Message Enc [facility] Family Internal [address] [address] Mi Huerta APNP Authorization for Ozempic 12/09/2024 Telephone [facility] Family & Internal [address] [address] Mi Huerta APNP Surgical Clearance (/) 12/05/2024 Scan [facility] INFO SRVCS Scanned, [facility] Lab (SCAN); ECG (SCAN) 11/10/2024 Telephone [facility] Family & Internal Medicine [address] [address] Mi Huerta APNP Prior Authorization (Ozempic 2 mg ) from Last 3 Months Immunizations Immunization Administration Dates Next Due Fluzone 6 Months+ Quad (0.5 mL Prefilled Syringe) 06/27/2023,12/29/2019,01/27/2019 Hepatitis B(Engerix B Adult) 10/13/2024,09/13/19 25 Influenza Adult (Generic) 01/13/2021,01/25/2018 Pneumococcal (Prevnar 20) 08/17/2023 Shingrix 01/09/2025,09/12/2024 Tdap (Generic) 12/19/2019 Tdap (Historical Only-select from magnify glass) 01/27/2019 Family History Medical History Relation Comments Heart Disease Father Hyperlipidemia Father Hypertension Father Breast Cancer Maternal Grandmother Cancer Mother breast Glaucoma Mother Relation Status Comments Father Maternal Grandmother Mother Social History Tobacco Use Types Packs/Day Years Used Date Smoking Tobacco: Never Smokeless Tobacco: Never Tobacco Cessation:Counseling Given: Not Answered Alcohol Use Standard Drinks/Week Comments Yes 6.7 (1 standard drink = 0.6 oz p ure alcohol) socially AUDIT-C Answer Date Recorded Frequency of Alcohol Consumption 2-3 times a wee k 01/27/2019 Average Number of Drinks 3 or 4 019 Frequency of Binge Drinking Less than monthly PHQ-2 Answer Date Recorded Patient Health Questionnaire-2 Score 0 05/27/2024 Comments No Sex and Gender Information Value Date Recorded Sex Assigned at Female 05/24/2024 11:19 AM SLATE TRIMMER Legal Sex Female 7:56 PM CDT Gender Identity Not on file Sexual Orientation Not on file Last Filed Vital Signs Vital Sign Reading Time Taken Comments Blood Pressure 118/68 01/09/2025 11:40 AM CDT Pulse 80 01/09/2025 11:40 AM CDT Temperature 36.8 C (98.2 F) 01/09/2025 11:40 AM CDT Respiratory Rate 16 01/09/2025 11:40 AM CDT Oxygen Saturation 99% 01/09/2025 11:40 AM CDT Inhaled Oxygen Concentration - - Weight 93.1 kg (205 lb 4.8 oz) 01/09/2025 11:40 AM CDT Height 162.6 cm (5' 4) 01/09/2025 11:40 AM CDT Body Mass Index 35.24 01/09/2025 11:40 AM CDT Plan of Treatment Health Maintenance Due Date Last Done Comments Cervical Cancer Screening Pap Smear (Age 30 to 64) Every 3 Years 1968 Diabetes: Retinopathy Eye Exam 1986 Hepatitis C 1986 Cervical Cancer Screening Pap with HPV Testing (Age 30 to 64) Every 5 Years 1998 Annual Physical 07/21/2023 07/20/2022 Mammogram Screening 06/19/2024 06/19/2022, 11/18/2020, 10/28/2019 COVID-19 Vaccine ( season) 2024 02/24/2021, 06/18/2020, 05/21/2020 Influenza Adult (#1) 2025 06/27/2023, 01/13/2021, 12/29/2019, Additional history exists Hepatitis B Vaccines (3 of 3 - 19+ 3-dose series) 03/15/2025 10/13/2024, 09/12/2024 Hemoglobin A1C 07/09/2025 01/09/2025, 05/3 , 05/27/2024, Additional history exists Cervical Cancer Screening with HPV 09/01/2025 Postponed from 1998 (Going to Outside Clinic) Lipid Panel 09/12/2025 09/12/2024, 05/0 06/2023, 07/20/2022, Additional history exists Kidney Health Evaluation 01/09/2026 01/09/2025 DTaP, Tdap and Td Vaccines (3 - Td or Tdap) 12/18/2029 12/19/2019, 01/27/2019 Colorectal Cancer Screening Colonoscopy (10 Years) 10/26/2031 10/25/2021 Pneumococcal Vaccine: 50+ Years Completed 08/17/2023 PHQ-2 (Physician Cachil Dehe) Completed 05/27/2024 Zoster Vaccines Completed 01/09/2025, 09/12/2024 Hepatitis A Vaccines Aged Out No long er eligible based on patient's age to complete this topic Meningococcal B Vaccine Aged Out No l onger eligible based on patient's age to complete this topic Meningococcal Vaccine Aged Out No josias franny eligible based on patient's age to complete this topic RSV Immunizations Under 20 Months Aged Out No longer eligible based on patient's age to complete this topic Procedures Procedure Name Priority Date/Time Associated Diagnosis Comments ALBUMIN URINE RANDOM W/CREATININE Routine 01/09/2025 12:15 PM CDT Type 2 diabetes mellitus with hyperglycemia, without long-term current use of insulin ([facility]) COLLECT.CAPILLARY (FNGR,HEEL,EAR) Routine 01/09/2025 11:43 AM CDT Type 2 diabetes mellitus with hyperglycemia, without long-term current use of insulin ([facility]) HEMOGLOBIN, GLYCOSYLATED Routine 01/09/2025 Type 2 diabetes mellitus with hyperglycemia, without long-term current use of insulin ([facility]) ECG GENERIC (SCAN ORDER) 12/05/2024 OUTSIDE LAB (SCAN ORDER) 12/05/2024 OUTSIDE LAB (SCAN ORDER) 12/05/2024 OUTSIDE LAB (SCAN ORDER) 12/05/2024 LIPID PANEL Routine 09/12/2024 10:13 AM CDT Primary hypertension Mixed hyperlipidemia MAMMOGRAM GENERIC (SCAN ORDER) 06/19/2022 COLONOSCOPY GENERIC (SCAN ORDER) 10/25/2021 from Last 3 Months or Most Recently Relevant to Health Maintenance Results * ALBUMIN/CREATININE RATIO, RANDOM URINE (01/09/2025 12:15 PM CDT) MICROALBUMIN (U) <1.3 <20 MG/L 01/10/20 6:28 PM CDT -NERIS FOWLER Comment:RESULTS CONFIRMED-TE ST REPEATED CREATININE RANDOM (U) 15.7 MG/DL 01/09/2025 6:00 PM CDT [facility] GREGORY, NERIS ALBUMIN/CREAT RATIO UNABLE TO CALCULATE <30 MG/G 01/09/2025 6:28 PM CDT [facility] SATHYA JENKINSFIELD URINE SPECIMEN / Unknown 01/09/2025 12:15 PM CDT Mi VILLEGAS URINE ORDERABLES Final Resu lt [facility] GREGORY DAVIS [address] [place] [address], * HEMOGLOBIN, GLYCOSYLATED (01/09/2025) HGB A1C 5.3 % [facility] 01/09/2025 Mi [facility] Final Resul t Performing Organization Address City/[facility]/ZIP Co de Phone Number [facility] [address] [place] [address], [place] * ECG GENERIC (SCAN ORDER) (12/05/2024) 12/05/2024 [facility] Scanned SCANNING Final Resu lt * OUTSIDE LAB (SCAN ORDER) (12/05/2024) Only the most recent of3 resultswithin the time period is included. 12/05/2024 [facility] Scanned SCANNING Final Resu lt * (ABNORMAL) LIPID PANEL (09/12/2024 10:13 AM CDT) CHOLESTEROL 226(H) <200 MG/DL 09/12/2024 4:17 PM CDT [facility] TRIGLYCERIDES 120 <150 MG/DL 09/12/2024 4:17 PM CDT [facility] HDL 61 >40 MG/DL 09/12/2024 4:17 PM CDT [facility] LDL-C 141(H) <100 MG/DL 09/12/2024 4:17 PM CDT [facility] VLDL CALCULATION 24 5 - 28 MG/DL 09/12/2024 4:17 PM CDT [facility] CHOL/HDL RATIO 3.7 0.0 - 4.0 09/12/2024 4:17 PM CDT [facility] LDL/HDL 2.3(H) 0.41 - 2.13 09/12/2024 4:17 PM CDT [facility] NON HDL CHOLESTEROL 165(H) <140 MG/DL 09/12/2024 4:17 PM CDT [facility] 09/12/2024 10:1 3 AM CDT [facility] Final Resul t [facility] [address] [place] [address], * MAMMOGRAM GENERIC (06/19/2022) Anatomical Region Laterality Modality Other 06/19/2022 [facility] Scanned SCANNING Final Resu lt * COLONOSCOPY GENERIC (SCAN ORDER) (10/25/2021) 10/25/2021 [facility] Scanned SCANNING Final Resu lt from Last 3 Months or Most Recently Relevant to Health Maintenance Insurance [facility] Care Teams Outbound Telemarketing Representative Relationship Specialty Start Date End Date Mi Huerta APNP [address] [place] [phone] PCP - General NURSE PRACTITIONER 01/27/19
--- OUTSIDE RECORDS SUMMARY | 2025-02-02 08:07 | XMS_ITS | Encounter Summary ---
Author Organization [facility] Address [address] [place] [address] Care Team Providers Care Kitchen Porter Name Role Phone Mi Huerta Primary Care Provider Encounter Details Date Type Department Care Team (Late st Contact Info) Description 11/01/2023 MedLinkt Message Enc [facility] Family & Internal Medicine [facility] [address] [place] [address] Mi Huerta APNP [address] [place] [address] Prescription Social History Tobacco Use Types Packs/Day Years Used Date Smoking Tobacco: Never Smokeless Tobacco: Never Alcohol Use Standard Drinks/Week Comments Yes 6.7 (1 standard drink = 0.6 oz p ure alcohol) socially AUDIT-C Answer Date Recorded Frequency of Alcohol Consumption 2-3 times a wee k 01/27/2019 Average Number of Drinks 3 or 4 019 Frequency of Binge Drinking Less than monthly PHQ-2 Answer Date Recorded Patient Health Questionnaire-2 Score 2 06/27/2023 Comments No Sex and Gender Information Value Date Recorded Sex Assigned at Female 05/24/2024 11:19 AM SANDER OPERATOR Legal Sex Female 7:56 PM CDT Gender Identity Not on file Sexual Orientation Not on file documented as of this encounter Progress Notes * BAKARI Wade - 11/02/2023 10:15 AM CDT It's her choice I have already sent the Ozempic * BAKARI Wade - 11/01/2023 6:41 PM CDT Medication changed and sent over * BAKARI Wade - 11/01/2023 6:40 PM CDTFrom: Autumn Sesay To: Mi Huerta Sent: 11/01/2023 3:31 PM CDT Subject: Prescription The prescription was not covered by my insurance. We will need to check to see if ozempic is covered. documented in this encounter Plan of Treatment Not on file documented as of this encounter Visit Diagnoses Diagnosis Type 2 diabetes mellitus with hyperglycemia, without long-term current use of insulin ([facility])- Primary documented in this encounter Additional Health Concerns Assessment Noted Time PHQ-9 Depression Total Score: 7 06/27/19 24 11:31 AM CDT documented as of this encounter Care Teams Kitchen Porter Relationship Specialty Start Date End Date Mi Huerta APNP [address] [place] [id number] PCP - General NURSE PRACTITIONER 01/27/19 documented as of this encounter
--- OUTSIDE RECORDS SUMMARY | 2025-02-02 08:07 | XMS_ITS | Encounter Summary ---
Author Organization [facility] Address [address] [facility] [place] [address] Care Team Providers Care Malted Milk Mixer Name Role Phone Mi Huerta REQUIREMENTS ENGINEER-CHARGER TESTER Primary Care Provider Encounter Details Date Type Department Care Team (Late st Contact Info) Description 09/25/2022 Lab Requisition [facility] - [facility] Lab [address] [facility] [place] [address] Libertad Butcher PA-C [address] [place] [address] Neoplasm of uncertain behavior of skin Social History Tobacco Use Types Packs/Day Years Used Date Smoking Tobacco: Never Smokeless Tobacco: Never Alcohol Use Standard Drinks/Week Comments Yes 0 (1 standard drink = 0.6 oz pur e alcohol) socially Comments Unknown Sex and Gender Information Value Date Recorded Sex Assigned at Female 02/18/2022 3:51 PM CDT Legal Sex Female 6:29 AM SCANNING MANAGER Gender Identity Female 02/18/2022 3:51 PM CDT [...] AM CDT) Case Report Dermatopathology Report Case: [id number] Authorizing Provider: Libertad Butcher PA-C Collected: 09/25/2022 12:00 AM Ordering Location: [facility] Received: 09/26/2022 11:36 AM Pathologist: [...] characteristic determined by the Dermatopathology Laboratory at [facility], directed by Dr. Steffi Aponte. These tests need not be, and therefore are not, approved by the [place] Food and Drug Administration. The tests are used for clinical purposes. Billing Codes Specimen Charges Stain Charges 25593 [id number] 1 1 1 3 2:49 PM CDT [...] PATHOLOGY/CYTOLOGY KASANDRA CAMPBELL Final Result DERMATOPATHOLOGY LABORATORY [facility] - Department of Dermatology [facility] [address] [place] [address], [address] [phone] documented in this encounter Visit Diagnoses Diagnosis Neoplasm of uncertain behavior of skin documented in this encounter Care Teams Malted Milk Mixer Relationship Specialty Start Date End Date Mi Huerta, REQUIREMENTS ENGINEER-CHARGER TESTER [address] [place] [address] PCP - General 08/29/21 documented as of this encounter
--- OUTSIDE RECORDS SUMMARY | 2025-02-02 08:07 | XMS_ITS | Clinical Summary ---
Author Organization [facility] Address [address] [facility] [place] [address] Care Team Providers Care Animal Science Instructor Name Role Phone DeannaMi Anna AMBROCIO-BEAN VINER Primary Care Provider Source Comments [facility],non-owned Affiliates and Associated Physician Practices is amultiple site organization consisting of ambulatory clinics and hospital sitesin [place], [place], [place] and [place]. This disclosure is being madepursuant to the Care Everywhere program and may not contain all information available regarding this patient. Last updated 18.[facility] Allergies Active Allergy Reactions Criticality Noted Date [...] PM CDT Legal Sex Female 6:29 AM PAINTING SUPERVISOR Gender Identity Female 02/18/2022 3:51 PM CDT [...] of 3 - 19+ 3-dose series) 1987 PNEUMOCOCCAL VACCINE 50+ (1 of 2 - PCV) 1987 PAP SMEAR 1989 ZOSTER VACCINE (1 of 2) 2018 DEPRESSION SCREENING 04/16/2024 07/18/2023 MAMMOGRAM 06/19/2024 06/19/2022, 08/0 08/2020, 10/28/2019 COVID-19 VACCINE ( season) 2024 02/24/2021, 06/18/2020, 05/21/2020 INFLUENZA VACCINE (#1) 2024 4, 01/13/2021, 12/29/2019, Additional history exists SCREENING FOR DIABETES 08/27/2026 4, 08/27/2023, 08/27/2023, Additional history exists LIPID TESTING 08/16/2028 08/17/2023, 09/2022, 07/30/2021 DTAP/TDAP/TD VACCINES (3 - Td [...] this topic Medical Devices Implanted Type Area Garage Manager Device Identifier Shelf Expiration Date Model / Serial / Lot Kit Bngf c Nov Implanted:Qty: 1 on 08/27/2023 by Sariah Reyes MD at [facility] Right: Foot [employer] 04/12/2026 [id number] / / [id number] Screw 4.5mm 28mm Slf-Tap Pa Lck On [place] Implanted:Qty: 1 on 08/27/2023 by Sariah Reyes MD at [facility] Right: Foot [employer] [id number] / / Screw 4.5mm 30mm Lopro Lck Ft/Ankl Yash Implanted:Qty: 1 on 08/27/2023 by Sariah Reyes MD at [facility] Right: Foot [employer] [id number] / / Screw 4.5mm 36mm Slf-Tap Pa Lck On [place] Implanted:Qty: 1 on 08/27/2023 by Sariah Reyes MD at [facility] Right: Foot [employer] [id number] / / Screw 4.5mm 26mm 3di Tch Lck Pa Yash Implanted:Qty: 1 on 08/27/2023 by Sariha Reyes MD at [facility] Right: Foot [employer] [id number] / / Graft Snth Tissue Dbm 20cc Mini Ignite - [id number] Implanted:Qty: 1 on 08/27/2023 by Sariah Reyes MD at [facility] Right: Foot Elis [employer] 03/03/2026 [id number] / [id number] / Graft Bone Canc 4-9.5mm 15cc [place] - [id number] Implanted:Qty: 1 on 08/27/2023 by Sariah Reyes MD at [facility] Right: Foot [employer] 02/19/2028 [id number] / [id number] / Screw 7mm 40mm St Comp Hdls Midfoot Implanted:Qty: 1 on 08/27/2023 by Sariah Reyes MD at [facility] Right: Foot [employer] [id number] / / Screw 7mm 35mm St Comp Hdls Midfoot Implanted:Qty: 1 on 08/27/2023 by Sariah Reyes MD at [facility] Right: Foot [employer] [id number] / / Plate 3 Hl Shft 1 Comp Hl Fsn Tibiotalar Implanted:Qty: 1 on 08/27/2023 by Sariah Reyes MD at [facility] Right: Foot [employer] [id number] / / 5.5 X 30 Bone Screw Implanted:Qty: 1 on 08/27/2023 by Sariah Reyes MD at [facility] Right: Foot [employer] [id number] / / Explanted Type Area Garage Manager Device Identifier Shelf Expiration Date Model / Serial / Lot Wire K 2.5mm 270mm Fx Explanted:Qty: 2 on 08/27/2023 by Sariah Reyes MD at [facility] Right: Foot [employer] [id number] / / Pin Fx 2mm Salvation Ortholoc Temp Explanted:Qty: 2 on 08/27/2023 by Sariah Reyes MD at [facility] Right: Foot [employer] [id number] / / Procedures Procedure Name Priority Date/Time Associated Diagnosis Comments GLUCOSE - POINT OF CARE Routine 08/28/2023 7:54 AM CDT from Last 3 Months or Most Recently Relevant to Health Maintenance Results * GLUCOSE - POINT OF CARE (08/28/2023 7:54 AM CDT) [facility] Glucose WB/POC 99 70 - 106 mg/dL 08/28/2023 8:04 AM CDT [facility] Specimen Type Cap Fingerstick 2023 8:04 AM CDT [facility] Blood BLOOD SPECIMEN / Unknown 08/28/2023 7:54 AM CDT 08/28/2023 8:04 AM CDT Sariah Reyes MD LAB - POINT OF CARE ORDERABL ES Final Result [facility] [address] [facility] [place] [address] from Last 3 Months or Most Recently Relevant to Health Maintenance Insurance [address] [facility] Advance Directives * Full Code (Latest Code Status on File) Date Activated Date Inactivated Comments 08/27/2023 4:48 PM 08/28/2023 1:34 PM Care Teams Animal Science Instructor Relationship Specialty Start Date End Date Mi Huerta, STOREROOM ATTENDANT-DYLON [address] [place] [address] PCP - General 08/29/21
--- OUTSIDE RECORDS SUMMARY | 2025-02-02 08:07 | XMS_ITS | Patient Health Record ---
Author Organization [facility] Address [address] [place], [place] [id number] Care Team Providers Care Hard Tile Setter Name Role Phone Mi Huerta Primary Care Provider Unavailabl e Allergies Allergen (clinical drug ingredient) Drug/Non Drug Allergy documented on EMR Reaction Allergy Type Onset Date Status codeine Codeine Unknown Drug Allergy Active Reason For Referral No Information Medications Medication SIG (Take, Route, Fr equency, Duration) Notes Start Date End Date Status Meloxicam 7.5 MG 1 tablet Orally Once a day Active Plan Of Treatment No Information Insurance Providers Payer Name Payer Address Payer Phone Subscriber Number Group Number Insured Name Patient Relationship to Insured Coverage Start Date Coverage End Date [facility] [address] [address] [place] [address] [id number] FINN Sesay Self - patient is the insured Medical (General) History Medical History History ICD Code High Blood Pressure
[2025-02-02 09:25] LABS: Hematocrit 38.0 % (37.0-47.0); Hemoglobin 12.7 g/dL (12.0-15.0); Immature Granulocyte Percent A 0.5 % (0-0.5); Lymphocytes Absolute Auto 1.10 K/mm3 (0.9-3.2); Mean Corpuscular HGB Conc 33.4 g/dl (32-36); Mean Corpuscular Hemoglobin 30.0 pg (26-34); Mean Corpuscular Volume 89.6 fl (80-100); Nucleated Red Blood Cells Absolute Auto 0.000 K/mm3 (0.0-0.012); Nucleated Red Blood Cells Perc 0.0 % (0.0-0.2); Platelet Count Result 336 k/mm3 (150-375); Red Blood Count 4.24 M/mm3 (4.2-5.4); White Blood Count 6.2 K/mm3 (4.5-10.0)
[2025-02-02 09:37] LABS: Hemoglobin A1C 5.3 % (<5.7)
[2025-02-02 09:39] LABS: INR 1.1; Prothrombin Time 13.8 Seconds (11.1-14.7)
[2025-02-02 09:40] LABS: Partial Thromboplastin Time 28.5 Seconds (22.3-36.8)
[2025-02-02 09:42] LABS: Albumin Level 4.4 g/dL (3.5-5.1); Anion Gap 8 mmol/L (4-12); Blood Urea Nitrogen 25 mg/dL (7-17); Calcium 9.0 mg/dL (8.4-10.2); Carbon Dioxide 28 mmol/L (22-30); Chloride 101 mmol/L (98-107); Estimated Glomerular Filt Rate > 60; Glucose 90 mg/dL (65-110); Potassium 4.2 mmol/L (3.4-5.0); Sodium 137 mmol/L (137-145)
[2025-02-02 10:39] LABS: MRSA (PCR) NOT DETECTED (NOT DETECTE)
[2025-02-02 10:53] LABS: Add Urine Microscopic? YES; Appearance Urine Clear (Clear); Glucose Urine UA Negative (Negative); Leukocyte Esterase Ur 1+ LEU/UL (Negative); Need Manual Microscopic Reviewed; Nitrate Urine Negative (Negative); Non Pathogenic Casts 0-2; Specific Grav Ur 1.025 (1.001-1.035)
== END 2025-02-02 07:57 | disposition home or self-care (01) ==
LOC: ANHSURGERY 08:00
PROVIDERS: PCP Registered Nurse; Visit Provider Orthopaedic Surgery
DX: M17.12 Unilateral primary osteoarthritis, left knee (principal); Z01.818 Encounter for other preprocedural examination
CPT/HCPCS: 80048; 80307; 81001; 82040; 83036; 85025; 85610; 85730; 87086; 87641

== ENCOUNTER 2025-02-17 01:32 | Day surgery (SDC) | payer OTHER, SELFPAY ==
--- NOTE | 2025-02-02 07:58 | PC.NURSE ---
[facility] has started construction of its new state of the art ER which will open Spring 2026. With this, we anticipate parking may be a challenge for some our surgical patients and families. Parking spaces are limited but are available for all Surgical, obstetrics, and ER patients sharing this lot. If you arrive and find you are having a hard time finding a parking space, please note that we understand the challenges, please drive around the hospital and park near Hospital Entrance 1. When you enter this entrance, you can ask a volunteer to direct or take you back to the surgical waiting area to check in. We appreciate everyone?s understanding of these expected challenges while we build for your future. Report to the Outpatient Waiting Room, entrance under the green pavilion located off [address], at time __10 AM on date __02/17/25 . Planned Procedure Time: __1200 NOON .? Time changes happen often and if your time is changed the preop area will call you the afternoon before. - You and your visitor will be asked to self-screen and do not enter if you have any COVID symptoms. Please call surgeon if you need to reschedule. - A mask is optional within the hospital at this time. Patients may have clear liquids (water, carbonated beverages, clear teas, apple juice) until 3 hours prior to surgery( 9AM) with a maximum of 20 ounces. - No food from midnight until time of surgery and no smoking, or chewing tobacco (or any form of nicotine). No chewing gum, candy or mints. - Take only the following medications with a SIP of water on the morning of surgery: __ESCITALOPRAM, BUPROPION, LORAZEPAM DO NOT STOP ANY OF YOUR OTHER PRESCRIPTION MEDICATIONS PRIOR TO SURGERY EXCEPT THE FOLLOWING Hold all vitamins and supplements for 3 days per anesthesiologist.LAST DOSE02/13/25 Medications to discontinue per physician MELOXICAM PER DR VELOZ Date to take last dose Please no make-up, nail guinean, hairspray, perfume, deodorant, or body powder the day of surgery.? No jewelry (including any body piercings) or valuables the day of surgery, leave them at home.? Please take a shower or bath the night before, or the morning of, surgery with an antibacterial soap.? Wear comfortable, loose fitting clothing.? Children are encouraged to wear pajamas. - Jewelry must be removed prior to entering the operating room.? Rings and piercings that are not removed may be cut off. - The hospital will not accept responsibility for valuables.? - Please leave all valuables, including medications, at home the day of surgery. If you are going home after surgery, a licensed experienced truck driver must drive you home.? - NO public transportation without another adult if you receive anesthesia. - We recommend that an adult stay with you for 24 hours following discharge. - We also recommend that you do not drive, make important decision, drink alcoholic beverages, or take any drugs that were not prescribed by your health care provider for at least 24 hours after your discharge time. Follow any additional instructions given to you from your surgeon. VERBAL AND WRITTEN instructions given to __PATIENT and asked if any additional questions and then verbalized understanding. Patient advised to call surgeon office or pre surgery nurse liaison [phone] if any additional questions.
[2025-02-02 08:02] VITALS: BMI 37.9
[2025-02-02 08:46] VITALS: BP 143/99; PULSE 82; RESP 18; TEMP 37.3; O2SAT 100
[2025-02-17] VITALS (11 sets, daily range): BP systolic 98–138; BP diastolic 70–89; PULSE 80–91; RESP 14–20; TEMP 36.2–36.9; O2SAT 94–100
--- NOTE | ~2025-02-17 | XR_ITS ---
EXAMINATION: [id number] DATE: 02/17/2025 15:29 GRIEVANCE MANAGER INDICATION: Left knee arthroplasty TECHNIQUE: 2 views left knee FINDINGS: There is a left total knee arthroplasty in expected position. Subcutaneous gas with fluid and air in the joint are consistent with recent surgery. No evidence of periprosthetic fracture. IMPRESSION: 1. Recent left total knee arthroplasty. Reviewed, dictated and finalized at location O. VANCE MANAGER
--- OUTSIDE RECORDS SUMMARY | 2025-02-17 01:34 | XMS_ITS | Clinical Summary ---
Author Organization [facility] Address [address] [place] [address] Care Team Providers Care Obstetrics Gyn Physician Name Role Phone Mi Huerta BAKARI Primary [...] Encounters Date Type Department Care Team Description 02/02/2025 Scan Spotigo INFO SRVCS Scanned, Doc Med Group Lab (SCAN) 01/13/2025 MyCHybrid Logict Message Enc [facility] Family & Internal [address] [address] Mi Huerta APNP surgery paperwork 01/09/2025 11:20 AM CDT Office Visit [facility] Internal [address] [address] Mi Huerta APNP Surgical Clearance 01/09/2025 Travel 12/30/2024 MyChart Message Enc [facility] Family & Internal [address] [address] Mi Huerta APNP Surgery scheduled 12/16/2024 MyChart Message Enc [facility] Internal [address] [address] Mi Huerta APNP Authorization for Ozempic 12/09/2024 Telephone [facility] Internal [address] [address] Mi Huerta APNP Surgical Clearance (/) 12/05/2024 Scan [facility] INFO SRVCS Scanned, Doc Med Group Lab (SCAN) 12/05/2024 Scan [facility] INFO SRVCS Scanned, Doc Med Group Lab (SCAN); ECG (SCAN) from Last 3 Months Immunizations Immunization Administration [...] Sex Assigned at Female 05/24/2024 11:19 AM LINE PERSON Legal Sex Female 7:56 PM CDT Gender [...] 03/15/2025 10/13/2024, 09/12/2024 Hemoglobin A1C 07/09/2025 01/09/2025, 053 , 05/27/2024, Additional history exists Cervical Cancer Screening with HPV 09/01/2025 Postponed from 1998 (Going to Outside Clinic) Lipid Panel 09/12/2025 09/12/2024, 05/0 06/2023, 07/20/2022, Additional history exists Kidney Health Evaluation 01/09/2026 01/09/2025 DTaP, Tdap and Td Vaccines (3 - Td or Tdap) 12/18/2029 12/19/2019, 01/27/2019 Colorectal Cancer Screening Colonoscopy (10 Years) 10/26/2031 10/25/2021 Pneumococcal Vaccine: 50+ Years Completed 08/17/2023 PHQ-2 (Physician [place]) Completed 05/27/2024 Zoster Vaccines Completed 01/09/2025, 09/12/2024 [...] Procedure Name Priority Date/Time Associated Diagnosis Comments OUTSIDE LAB (SCAN ORDER) 02/02/2025 OUTSIDE LAB (SCAN ORDER) 02/02/2025 OUTSIDE PT/INR (SCAN ORDER) 02/02/2025 ALBUMIN URINE RANDOM W/CREATININE Routine 01/09/2025 12:15 PM CDT Type 2 diabetes mellitus with hyperglycemia, without long-term current use of insulin ([facility]) COLLECT.CAPILLARY (FNGR,HEEL,EAR) Routine 01/09/2025 11:43 AM CDT Type 2 diabetes mellitus with hyperglycemia, without long-term current use of insulin ([facility]) HEMOGLOBIN, GLYCOSYLATED Routine 01/09/2025 Type 2 diabetes mellitus with hyperglycemia, without long-term current use of insulin ([facility]) ECG GENERIC (SCAN ORDER) 12/05/2024 OUTSIDE LAB (SCAN ORDER) Routine 12/05/2024 OUTSIDE LAB (SCAN ORDER) 12/05/2024 OUTSIDE LAB (SCAN ORDER) 12/05/2024 OUTSIDE LAB (SCAN ORDER) 12/05/2024 LIPID PANEL Routine 09/12/2024 10:13 AM CDT Primary hypertension Mixed hyperlipidemia MAMMOGRAM GENERIC (SCAN ORDER) 06/19/2022 COLONOSCOPY GENERIC (SCAN ORDER) 10/25/2021 from Last 3 Months or Most Recently Relevant to Health Maintenance Results * OUTSIDE PT/INR (SCAN ORDER) (02/02/2025) 02/02/2025 us Doc Med Group Scanned SCANNING Final Resu lt * OUTSIDE LAB (SCAN ORDER) (02/02/2025) Only the most recent of6 resultswithin the time period is included. 02/02/2025 [facility] Scanned SCANNING Final Resu lt * ALBUMIN/CREATININE RATIO, RANDOM URINE (01/09/2025 12:15 PM CDT) Pathologist [facility] MICROALBUMIN (U) <1.3 <20 MG/L 01/10/20 6:28 PM CDT [facility] Comment:RESULTS CONFIRMED-TE ST REPEATED CREATININE RANDOM (U) 15.7 MG/DL 01/09/2025 6:00 PM CDT [facility] ALBUMIN/CREAT RATIO UNABLE TO CALCULATE <30 MG/G 01/09/2025 6:28 PM CDT [facility] URINE SPECIMEN / Unknown 01/09/2025 12:15 PM CDT Mi [facility] URINE ORDERABLES Final Resu lt [facility] [address] [place] [address], * HEMOGLOBIN, GLYCOSYLATED (01/09/2025) Pathologist [facility] HGB A1C 5.3 % [facility] 01/09/2025 [facility] Final Resul t [facility] [address] [place] [address], [place] * ECG GENERIC (SCAN ORDER) (12/05/2024) 12/05/2024 [facility] Scanned SCANNING Final Resu lt * (ABNORMAL) LIPID PANEL (09/12/2024 10:13 AM CDT) Pathologist [facility] CHOLESTEROL 226(H) <200 MG/DL 09/12/2024 4:17 PM CDT [facility] TRIGLYCERIDES 120 <150 MG/DL 09/12/2024 4:17 PM CDT [facility] HDL 61 >40 MG/DL 09/12/2024 4:17 PM CDT [facility] LDL-C 141(H) <100 MG/DL 09/12/2024 4:17 PM CDT [facility] VLDL CALCULATION 24 5 - 28 MG/DL 09/12/2024 4:17 PM CDT [facility] CHOL/HDL RATIO 3.7 0.0 - 4.0 09/12/2024 4:17 PM CDT [facility] LDL/HDL 2.3(H) 0.41 - 2.13 09/12/2024 4:17 PM T [facility] NON HDL CHOLESTEROL 165(H) <140 MG/DL 09/12/2024 4:17 PM CDT [facility] 09/12/2024 10:1 3 AM CDT [facility] Final Resul t [facility] [address] [place] [address], * MAMMOGRAM GENERIC (06/19/2022) Anatomical Region Laterality Modality Other 06/19/2022 [facility] Scanned SCANNING Final Resu lt * COLONOSCOPY GENERIC (SCAN ORDER) (10/25/2021) 10/25/2021 [facility] Scanned SCANNING Final Resu lt from Last 3 Months or Most Recently Relevant to Health Maintenance Insurance [facility] Care Teams Obstetrics Gyn Physician Relationship Specialty Start Date End Date Mi Huerta APNP [address] [place] [id number] PCP - General NURSE PRACTITIONER 01/27/19
--- OUTSIDE RECORDS SUMMARY | 2025-02-17 01:34 | XMS_ITS | Patient Health Record ---
Author Organization [facility] Address [address] [place], [place] [address] Care Team Providers Care Process Improvement Consultant Name Role Phone Mi Huerta Primary Care Provider Unavailabl e Allergies Allergen (clinical drug ingredient) Drug/Non Drug Allergy documented on EMR Reaction Allergy Type Onset Date Status codeine Codeine Unknown Drug Allergy Active Reason For Referral No Information Medications Medication SIG (Take, Route, Fr equency, Duration) Notes Start Date End Date Status Meloxicam 7.5 MG Tablet 1 tablet Orally Once a day Active Plan Of Treatment No Information Insurance Providers Payer Name Payer Address Payer Phone Subscriber Number Group Number Insured Name Patient Relationship to Insured Coverage Start Date Coverage End Date [facility] [address] [address] [place] [address] [id number] FINN Sesay Self - patient is the insured Medical (General) History Medical History History ICD Code High Blood Pressure
--- OUTSIDE RECORDS SUMMARY | 2025-02-17 01:34 | XMS_ITS | Clinical Summary ---
Author Organization [email or web address] Address [address] [place] [address] Care Team Providers Care Ekg/Ecg Technician Name Role Phone DeannaMi Anna AMBROCIO-TREATER HELPER Primary Care Provider Source Comments [email or web address],non-owned Affiliates and Associated Physician Practices is amultiple site organization consisting of ambulatory clinics and hospital sitesin [place], [place], [place] and [place]. This disclosure is being madepursuant to the Care Everywhere program and may not contain all information available regarding this patient. Last updated 18.[email or web address] Allergies Active Allergy Reactions Criticality Noted Date Comments Codeine Dizziness,Nausea and /or Vomiting,Unknown,Vomiting 01/14/1986 Medications * Be aware that medications may not be up to date on this document. Alwaysverify current medications with the patient. lisinopril (PRINIVIL; ZESTRIL) 20 MG tablet 022 Active hydroCHLOROthiazi de (HYDRODIURIL) 12.5 MG 022 Active escitalopram (Lexapro) 20 MG tablet 023 Active buPROPion XL 24hr (Wellbutrin-XL) 150 MG tablet 024 Active metFORMIN ER 24hr (Glucophage XR) 500 MG tablet Take 1 (one) tablet by mouth daily with dinner 024 Active aspirin (Aspirin) 325 MG tablet Take 1 (one) tablet by mouth once daily 35 tablet Active docusate sodium (Colace) 100 MG capsule Take 1 (one) capsule by mouth once daily 30 capsule Active Additional Information Patient not taking.Reported on 01/23/2024 oxyCODONE-acetami nophen (Percocet) 10-325 MG tabletIndications :Acute right ankle pain Take 1 (one) tablet by mouth every 6 hours as needed for Pain 42 tablet Active ondansetron, disintegrating, (Zofran ODT) 4 MG tablet Take 2 (two) tablets by mouth every 8 hours as needed for Nausea/Vomiting Allow tablet to dissolve on the tongue 30 tablet Active sulfamethoxazole- trimethoprim (Bactrim DS; Septra DS) 800-160 MG tablet Take 1 (one) tablet by mouth 2 times daily 28 tablet Active Additional Information Patient not taking.Reported on 01/23/2024 LORazepam (Ativan) 0.5 MG tablet TAKE 1 TABLET(0.5 MG) BY MOUTH EVERY 6 HOURS NEEDED FOR ANXIETY Active Semaglutide (1 MG/DOSE) 4 MG/3ML Subcutaneous Solution Pen-injector (Ozempic) Inject 1 (one) mg subcutaneously every 7 days Active meloxicam (Mobic) 15 MG tabletIndications :Primary osteoarthritis of left knee TAKE 1 TABLET DAILY 90 tablet 3 Active meloxicam (Mobic) 15 MG tabletIndications :Primary osteoarthritis of left knee TAKE 1 TABLET DAILY 90 tablet 3 024 2024 Discontinued Active Problems Problem Noted Date Diagnosed Date Acute right ankle pain 08/27/2023 Encounters Date Type Department Care Team Description 02/09/2025 Refill [facility] - Orthopedic Surgery [address] [place] [phone] Bharathi Barajas MD Refill Request from Last 3 Months Immunizations Immunization Administration Dates Next Due INFLUENZA [...] PM CDT Legal Sex Female 6:29 AM GIFT PACKER Gender Identity Female 02/18/2022 3:51 PM CDT [...] 2018 ZOSTER VACCINE (1 of 2) 2018 DEPRESSION SCREENING 04/16/2024 07/18/2023 MAMMOGRAM 06/19/2024 06/19/2022, 08/0 08/2020, 10/28/2019 COVID-19 VACCINE ( season) 2024 02/24/2021, 06/18/2020, 05/21/2020 INFLUENZA VACCINE (#1) 2024 4, 01/13/2021, 12/29/2019, Additional history exists SCREENING FOR DIABETES 08/27/2026 4, 08/27/2023, 08/27/2023, Additional history exists LIPID TESTING 08/16/2028 08/17/2023, 04/0 09/2022, 07/30/2021 DTAP/TDAP/TD VACCINES (3 - Td [...] this topic Medical Devices Implanted Type Area Skilled Laborer Device Identifier Shelf Expiration Date Model / Serial / Lot Kit Bngf 3cc Nov Inj Implanted:Qty: 1 on 08/27/2023 by Sariah Reyes MD at [facility] Right: Foot PagaTuAlquiler 04/12/2026 [id number] / / [id number] Screw 4.5mm 28mm Slf-Tap Pa Lck [place] Implanted:Qty: 1 on 08/27/2023 by Sariah Reyes MD at [facility] Right: Foot PagaTuAlquiler [id number] / / Screw 4.5mm 30mm Lopro Lck Ft/Ankl Yash Implanted:Qty: 1 on 08/27/2023 by Sariah Reyes MD at [facility] Right: Foot [employer] [id number] / / Screw 4.5mm 36mm Slf-Tap Pa Lck On [place] Implanted:Qty: 1 on 08/27/2023 by Sariah Reyes MD at [facility] Right: Foot PagaTuAlquiler [id number] / / Screw 4.5mm 26mm 3di Tch Lck Pa Yash Implanted:Qty: 1 on 08/27/2023 by Sariah Reyes MD at [facility] Right: Foot Paga[employer]Alquiler [id number] / / Graft Snth Tissue Dbm 20cc Mini Ignite - [id number] Implanted:Qty: 1 on 08/27/2023 by Sariah Reyes MD at [facility] Right: Foot Binger [employer] 03/03/2026 [id number] / [id number] / Graft Bone Canc 4-9.[facility] [id number] Implanted:Qty: 1 on 08/27/2023 by Sariah Reyes MD at [facility] Right: Foot [employer]osource 02/19/2028 [id number] / [id number] / Screw 7mm 40mm St Comp Hdls Midfoot Implanted:Qty: 1 on 08/27/2023 by Sariah Reyes MD at [facility] Right: Foot [employer] [id number] / / Screw 7mm 35mm St Comp Hdls Midfoot Implanted:Qty: 1 on 08/27/2023 by Sariah Reyes MD at [facility] Right: Foot El[employer] [id number] / / Plate 3 Hl Shft 1 Comp Hl Fsn Tibiotalar Implanted:Qty: 1 on 08/27/2023 by Sariah Reyes MD at [facility] Right: Foot [employer] [id number] / / 5.5 X 30 Bone Screw Implanted:Qty: 1 on 08/27/2023 by Sariah Reyes MD at [facility] Right: Foot [employer] [id number] / / Explanted Type Area Skilled Laborer Device Identifier Shelf Expiration Date Model / Serial / Lot Wire K 2.5mm 270mm Fx Explanted:Qty: 2 on 08/27/2023 by Sariah Reyes MD at [facility] Right: Foot [employer] [id number] / / Pin Fx 2mm Salvation Ortholoc Temp Explanted:Qty: 2 on 08/27/2023 by Sariah Reyes MD at [facility] Right: Foot [employer] [id number] / / Procedures Procedure Name Priority Date/Time Associated Diagnosis Comments GLUCOSE - POINT OF CARE Routine 08/28/2023 7:54 AM CDT from Last 3 Months or Most Recently Relevant to Health Maintenance Results * GLUCOSE - POINT OF CARE (08/28/2023 7:54 AM CDT) [facility] Glucose WB/POC 99 70 - 106 mg/dL 08/28/2023 8:04 AM CDT [facility] Specimen Type Cap Fingerstick 2023 8:04 AM CDT [facility] Blood BLOOD SPECIMEN / Unknown 08/28/2023 7:54 AM CDT 08/28/2023 8:04 AM CDT us Sariah Reyes MD LAB - POINT OF CARE ORDERABL ES Final Result [facility] [address] [id number] from Last 3 Months or Most Recently Relevant to Health Maintenance Insurance [facility] [place] [address] CARE [place] [id number] Advance Directives * Full Code (Latest Code Status on File) Date Activated Date Inactivated Comments 08/27/2023 4:48 PM 08/28/2023 1:34 PM Care Teams Ekg/Ecg Technician Relationship Specialty Start Date End Date Mi Huerta, LOLLY-TREATER HELPER [address] [place], [place] [phone] PCP - General 08/29/21
--- OUTSIDE RECORDS SUMMARY | 2025-02-17 01:34 | XMS_ITS | Encounter Summary ---
Author Organization [facility] Address [address] [place] [address] Care Team Providers Care Publishing Director Name Role Phone Mi Huerta STOCK MANAGER-TIEDOWN OPERATOR Primary Care Provider Encounter Details Date Type Department Care Team (Late st Contact Info) Description 09/25/2022 Lab Requisition [facility] [address] [facility] [place] [address] Libertad Butcher PA-C [address] [place] [address] Neoplasm of uncertain behavior of skin Social History Tobacco Use Types Packs/Day Years Used Date Smoking Tobacco: Never Smokeless Tobacco: Never Alcohol Use Standard Drinks/Week Comments Yes 0 (1 standard drink = 0.6 oz pur e alcohol) socially Comments Unknown Sex and Gender Information Value Date Recorded Sex Assigned at Female 02/18/2022 3:51 PM CDT Legal Sex Female 6:29 AM EFFERVESCENT SALTS COMPOUNDER Gender Identity Female 02/18/2022 3:51 PM CDT [...] AM CDT) Case Report Dermatopathology Report Case: [id number] Authorizing Provider: Libertad Butcher PA-C Collected: 09/25/2022 12:00 AM Ordering Location: [facility] DermPath Lab Received: 09/26/2022 11:36 AM Pathologist: [...] characteristic determined by the Dermatopathology Laboratory at [facility], directed by Dr. Steffi Aponte. These tests need not be, and therefore are not, approved by the [place] Food and Drug Administration. The tests are used for clinical purposes. Billing Codes Specimen Charges Stain Charges 51692 87924 81571 1 1 1 3 2:49 PM CDT [...] PATHOLOGY/CYTOLOGY KASANDRA CAMPBELL Final Result DERMATOPATHOLOGY LABORATORY [facility] - Department of Dermatology [facility] Specialized Medicine [address] [place] [address], [address] [phone] documented in this encounter Visit Diagnoses Diagnosis Neoplasm of uncertain behavior of skin documented in this encounter Care Teams Publishing Director Relationship Specialty Start Date End Date Mi Huerta, STOCK MANAGER-TIEDOWN OPERATOR [address] [place] [id number] PCP - General 08/29/21 documented as of this encounter
--- OUTSIDE RECORDS SUMMARY | 2025-02-17 01:34 | XMS_ITS | Encounter Summary ---
Author Organization [facility] Address [address] [place] [address] Care Team Providers Care Wildlife Forensic Geneticist Name Role Phone Mi Huerta AVIONICS SYSTEMS ENGINEER-DESKTOP PUBLISHING ASSOCIATE Primary Care Provider Reason for Visit * Reason Onset Date Comments Appointment 06/08/2023 Spk to [place], stated she was to receive a call about her next appointment and cat scan. Also questions when surgery will be scheduled, as she wants to plan for the date. She would like a callback [phone] Encounter Details Date Type Department Care Team (Late st Contact Info) Description 06/08/2023 Telephone [facility] - Centralized Scheduling [address] [place] [address] [place] [address] [facility] [address] [place] [address] Appointment (Spk to [place], stated she was to receive a call about her next appointment and cat scan. Also questions when surgery will be scheduled, as she wants to plan for the date. 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 Also questions when surgery will be scheduled, as she wants to plan for the date. She would like a callback [phone] LE DRIVER documented in this encounter Plan of Treatment Not on file documented as of this encounter Visit Diagnoses Not on filedocumented in this encounter Care Teams Wildlife Forensic Geneticist Relationship Specialty Start Date End Date Mi Huerta, AVIONICS SYSTEMS ENGINEER-DESKTOP PUBLISHING ASSOCIATE [address] [place] [id number] PCP - General 08/29/21 documented as of this encounter
--- OUTSIDE RECORDS SUMMARY | 2025-02-17 01:34 | XMS_ITS | Encounter Summary ---
Author Organization [facility] Address [address] [place] [address] Care Team Providers Care Feather Duster Winder Name Role Phone Mi Huerta BAKARI Primary Care Provider [phone] Reason for Visit * Reason Comments Lab (SCAN) Encounter Details Date Type Department Care Team (Latest Contact Info) Description 12/05/2024 Scan HEALTH INFO SRVCS Scanned, Doc Med Group Lab (SCAN) Social History Tobacco Use Types Packs/Day Years [...] Sex Assigned at Female 05/24/2024 11:19 AM MARINE STEAMFITTER Legal Sex Female 7:56 PM CDT Gender Identity Not on file Sexual Orientation Not on file documented as of this encounter Plan of Treatment Not on file documented as of this encounter Procedures Procedure Name Priority Date/Time Associated Diagnosis Comments OUTSIDE LAB (SCAN ORDER) Routine 12/05/2024 documented in this encounter Results * OUTSIDE LAB (12/05/2024) 12/05/2024 us [facility] Scanned SCANNING Final Resu lt HS ONBASE documented in this encounter Visit Diagnoses Not on filedocumented in this encounter Additional Health Concerns Assessment Noted Time PHQ-9 Depression Total Score: 7 06/27/19 24 11:31 AM CDT documented as of this encounter Care Teams Feather Duster Winder Relationship Specialty Start Date End Date Mi Huerta APNP [address] [place] [id number] PCP - General NURSE PRACTITIONER 01/27/19 documented as of this encounter
--- OUTSIDE RECORDS SUMMARY | 2025-02-17 01:34 | XMS_ITS | Encounter Summary ---
Author Organization [facility] Address [address] [place] [address] Care Team Providers Care Home Mission Worker Name Role Phone Mi Huerta BOOKSTORE MANAGER-LEAF SUCKER OPERATOR Primary Care Provider Reason for Visit * Reason Onset Date Comments MEDICATION REFILL 10/08/2023 Encounter Details Date Type Department Care Team (Late st Contact Info) Description 10/08/2023 Refill [facility] - Orth[facility] Surgery [address] [place] [address] Bharathi Barajas MD [address] [facility] [address] [place], [place] [id number] MEDICATION REFILL Social History Tobacco Use Types [...] PM CDT Legal Sex Female 6:29 AM ASSISTANT DIRECTOR OF FINANCIAL AID Gender Identity Female 02/18/2022 3:51 PM CDT [...] leg documented in this encounter Care Teams Home Mission Worker Relationship Specialty Start Date End Date Mi Huerta, BOOKSTORE MANAGER-LEAF SUCKER OPERATOR [address] [place] [id number] PCP - General 08/29/21 documented as of this encounter
--- OUTSIDE RECORDS SUMMARY | 2025-02-17 01:34 | XMS_ITS | Encounter Summary ---
Author Organization [facility] Address [address] [place] [address] Care Team Providers Care Chisel Mortiser Operator Name Role Phone Mi Huerta Primary Care Provider Encounter Details Date Type Department Care Team (Late st Contact Info) Description 11/01/2023 Vertical Point Solutionst Message Enc [facility] Medical Group Family & Internal Medicine [facility] [address] [place] [address] Mi Huerta APNP [address] [place] [address] Prescription Social History Tobacco Use [...] Sex Assigned at Female 05/24/2024 11:19 AM GYROSCOPIC INSTRUMENT MECHANIC Legal Sex Female 7:56 PM CDT Gender [...] without long-term current use of insulin ([facility])- Primary documented in this encounter Additional Health Concerns Assessment Noted Time PHQ-9 Depression Total Score: 7 06/27/19 24 11:31 AM CDT documented as of this encounter Care Teams Chisel Mortiser Operator Relationship Specialty Start Date End Date Mi Huerta APNP [address] [place] [phone] PCP - General NURSE PRACTITIONER 01/27/19 documented as of this encounter
[2025-02-17] MEDS: ACETAMINOPHEN 500 MG TABLET 1000 MG PO (10:40)
[2025-02-17] MEDS: TRANEXAMIC ACID 1,000MG/ISO100 1,000 MG/100 ML BAG 200 MG IVPB ×2 (10:45→14:14)
[2025-02-17] MEDS: LACTATED RINGERS 1,000 ML 30 ML IV CONT ×2 (10:45→15:10)
--- NOTE | 2025-02-17 11:57 | WPDANESEPPF ---
Anes - Initial Pre Proc Eval Procedure: Operation Date: 02/17/25 12:00 Proposed Procedures p Left Total Knee Arthroplasty - Hayden Menjivar MD Date/Time: 02/17/25 11:57 Surgeon: Hayden Menjivar MD Pre Op Diagnosis: left knee OA Patient Data Age: 54 Gender: F Height: 1.57 m Weight: 94 kg Last Vital Signs Temp 37.3 C 02/02/25 08:46 Pulse 82 02/02/25 08:46 Resp 18 02/02/25 08:46 BP 143/99 H 02/02/25 08:46 Pulse Ox 100 02/02/25 08:46 O2 Del Method Room Air 02/02/25 08:46 Allergies Allergy/AdvReac Type Severity Reaction Status Date / Time hydrocodone Allergy Severe Nausea and Verified 02/02/25 08:15 Vomiting codeine Allergy Unknown Nausea Verified 02/02/25 08:15 Home Medications ?Medication ?Instructions ?Recorded ?Confirmed ?Type hydrochlorothiazide 12.5 mg tablet 12.5 tablet PO DAILY 09/07/21 02/02/25 History lisinopril 20 mg tablet 20 tablet PO DAILY 09/07/21 02/02/25 History meloxicam 15 mg tablet 15 tablet PO DAILY 09/07/21 02/02/25 History albuterol sulfate 90 mcg/actuation 2 puff inhalation QID PRN 02/13/24 02/02/25 Rx aerosol inhaler shortness of breath or wheezing #6.7 grams escitalopram oxalate 20 mg tablet 20 mg PO DAILY #90 tabs 05/21/24 02/02/25 Rx acetaminophen 500 mg tablet 1,000 mg PO PRN PRN pain 02/02/25 02/02/25 History (Acetaminophen Pain Relief) atorvastatin 10 mg tablet 10 mg PO HS 02/02/25 02/02/25 History bupropion HCl 150 mg 24 hr tablet, 150 mg PO DAILY 02/02/25 02/02/25 History extended release (Wellbutrin XL) lorazepam 0.5 mg tablet 0.5 mg PO Q6H PRN anxiety 02/02/25 02/02/25 History melatonin 5 mg capsule 5 mg PO PRN PRN insomnia 02/02/25 02/02/25 History metformin 500 mg tablet 500 mg PO DAILY 02/02/25 02/02/25 History semaglutide 2 mg/dose (8 mg/3 mL) 2 mg subcut WEEKLY 02/02/25 02/02/25 History subcutaneous pen injector (Ozempic) amoxicillin 500 mg-potassium 1 tablet PO QID GBS 14 days #56 02/04/25 Rx clavulanate 125 mg tablet tabs (Augmentin) chlorhexidine gluconate 4 % 1 applic topical ONCE #237 mL 02/10/25 Rx topical liquid (Hibiclens) Laboratory Tests 02/17/25 10:54 POC Capillary Glucose 103 mg/dl (65-105) Patient hx anesthesia problems: none Family hx anesthesia problems: none Results Review: All pre-operative results and documents have been reviewed as part of the pre-operative evaluation. [facility] Past Medical History Medical History Fatigue Degenerative joint disease of knee Left knee pain Screening mammogram, encounter for Anxiety and depression Morbid obesity with BMI of 40.0-44.9, adult HTN (hypertension) Surgical History Surgical History History of ankle joint replacement (~08/2023) right History of surgery on right wrist (05/30/16) rt wrist fracture History of hernia repair (~2007) History of bilateral breast reduction surgery (~1985) H/O colonoscopy 10/25/21-repeat 10 years Family History Family History Father Hypertension Heart disease bypass Mother Breast cancer Social History Social History Smoking status: Never smoker Additional smoking assessment comments: DENIES ANY FORM OF TOBACCO USE Alcohol intake: current Drinks per week: 4 Substance use: never Substance use type: does not use Do You Feel Safe in your Home?: Yes Lack of Transportation: No Lack of Food: Never True Current Housing: I Have Housing Concerned About Future Housing: No Difficulty Paying Gas/Electric Bills: No Difficulty Paying for Meds: No Currently Unemployed: No Education: Master's Degree or Higher Living arrangements: with family Additional living arrangements comments: Occupation/Education: occupation Additional occupation/education comments: teacher Gender identity (if verbalized by the patient): Female Sexual Orientation (if Verbalized by the Patient): Straight or Heterosexual Spiritual care concerns: No Anes - Eval Final PreProcedure Day of Procedure 02/17/25 11:57 Patient weight: obese Heart: regular rate and rhythm Lungs: decreased breath sounds Airway: Mallampati scale class II Neurological: alert and oriented Last oral intake: >/= 8 hours ASA classification: III Emergent: no Anesthetic plan: proceed Anesthesia type and monitoring: general GIVS and standard monitoring Results Review: All pre-operative results and documents have been reviewed as part of the pre-operative evaluation. Informed Consent: The patient's anesthetic plan and its attendant risks and benefits were discussed with the patient/family/POA. Questions were solicited and answers provided to the satisfaction of the patient/family/POA.
[2025-02-17] MEDS: SCOPOLAMINE 1 MG PATCH 1 PATCH TRANSDERM (12:00)
--- NOTE | 2025-02-17 12:30 | WPDHPUPDATE1 ---
History and Physical Update Update Date/Time: 02/17/25 12:30 History and Physical has been reviewed, including an updated exam of the patient. There are NO changes in the patient's condition. Risks, benefits, and alternatives have been discussed and questions answered. Patient agrees to proceed with procedure.
[2025-02-17] MEDS: ceFAZolin 2 GM in SODIUM CHLORIDE 0.9% IV 50 ML 100 ML IVPB ×2 (12:52→21:13)
[2025-02-17] MEDS: SODIUM CHLORIDE 0.9% IV 37.7 ML, MORPHINE SULFATE INJ (*CRX) 2 MG, ROPivacaine HCL 1% 2... INFILTRATE (13:28)
--- NOTE | 2025-02-17 15:55 | WPDANESPNB ---
Anes - Peripheral Nerve Block Date/Time: 02/17/25 15:55 I have discussed with the patient/family/POA the placement of a peripheral nerve block for post-operative pain management, including associated risks, benefits, complications, and side effects. Alternative methods of post-operative analgesia were detailed. Questions were solicited and answers provided to the satisfaction of the patient/family/POA. Time-Out: A pre-procedural Time-Out was completed immediately before starting the procedure and confirmed: Patient Identification, Site, Procedure, Patient Position and the Availability of Requisite Equipment. Clinical Indications: Acute post-operative pain management requested by the operative surgeon. My partner Dr Day talked w pt in preop about PNB for post op analgesia (not done at that time bec of late time for OR/availability of staff). Nerve Block Insertion Note Anes-nerve block: adductor canal left Patient position: supine Skin prep: chlorhexidine Needle: 22 gauge, stimulating, insulated echogenic needle. Needle length: 80 mm Technique: ultrasound Injectate: other (Bupiv 0.5%, 10 mls. ) Observations: tolerated well Complications: none Procedure start time:: 1530 Procedure end time:: 154
--- NOTE | 2025-02-17 16:24 | P.OP_ITS ---
Procedure Note - Detailed Date of Procedure 02/17/25 Pre-op Diagnosis left knee OA Post-op Diagnosis Same Procedure Performed L TKA Surgeon Hayden Menjivar MD Anesthesia General Description of Procedure THE LEFT KNEE WAS PREPPED AND DRAPED IN THE STERILE FASHION. THERE WAS 5 DEG OF RECURVATUM. A MIDLINE SKIN INCISION WAS MADE. A MEDIAL PARAPATELLAR ARTHROTOMY WAS MADE. THE PATELLA WAS EVERTED. THERE WAS TRICOMPARTMENT DJD. AN INTRAMEDULLARY AYAD WAS PLACED IN THE FEMUR. A DISTAL FEMORAL CUT WAS MADE IN 5 DEGREES OF VALGUS REMOVING APPROXIMATELY 9 MM OF BONE FROM THE DISTAL FEMUR. THE FEMUR WAS SIZED TO 3. A 3 FEMORAL CUTTING BLOCK WAS PLACED IN 3 DEGREES OF EXTERNAL ROTATION AND IN ALIGNMENT WITH KRISTI'S LINE AND THE TRANSEPICONDYLAR AXIS. ANTERIOR POSTERIOR AND CHAMFER CUTS WERE MADE. THE CUTS WERE EXCELLENT. NEXT AN INTRAMEDULLARY CUTTING GUIDE WAS PLACED IN THE TIBIA. A TRANS TIBIAL CUT WAS MADE ALONG THE LONG AXIS OF THE TIBIA. APPROXIMATELY 6 MM OF BONE WAS REMOVED FROM THE HIGH SIDE OF THE TIBIA. THE TIBIA WAS THEN PLANED TO A SMOOTH SURFACE. A 3 TIBIAL TRIAL WAS PLACED IN ALIGNMENT WITH THE 1/3 MEDIAL ASPECT OF THE TIBIAL TUBERCLE. THEN A 3 FEMORAL TRIAL COMPONENT WAS PLACED. BOTH HAD EXCELLENT FITS. EVENTUALLY A 9 MM POLYETHYLENE TRIAL COMPONENT WAS PLACED. THE KNEE WAS TAKEN THROUGH A RANGE OF MOTION. THE KNEE CAME OUT TO FULL EXTENSION. THERE WAS NO ABNORMAL TILT TO THE PATELLA. THERE WAS GOOD A/P AND VARUS/VALGUS STABILITY. THERE WAS NO EXCESSIVE ROLL BACK WITH FLEXION. THE TRIAL COMPONENTS WERE REMOVED. THEN A UMU 3 FEMORAL COMPONENT AND 3 TIBIAL COMPONENT WITH A 9 CS POLYETHYLENE COMPONENT WERE PRESS FIT INTO PLACE. THE KNEE WAS TAKEN THROUGH A ROM AGAIN AND FOUND TO BE STABLE WITH NO PATELLA TILT NO EXCESSIVE ROLL BACK WITH FLEXION AND GOOD STABILITY WITH COMPLETE AND FULL EXTENSION. THE KNEE WAS IRRIGATED WITH STERILE BETADINE AND W ATER FOR ABOUT 3 MINUTES. THE BLEEDERS WERE CAUTERIZED. THE ARTHROTOMY WAS REPAIRED WITH NUMBER 1 VICRYL. THE SUB CUTANEOUS LAYER WITH 2-0 VICRYL AND THE SKIN WITH DERMABOND. A STERILE DRESSING WAS APPLIED. PATIENT WAS EXTUBATED. Estimated Blood Loss -150.0 Pathology None sent Complications No immediate complications Condition Stable Disposition PACU
--- NOTE | 2025-02-17 16:59 | ADMGEN ---
This patient, Autumn Sesay, was admitted to [facility] Surg Room 321-01. Patient/family oriented to hospital policies and general routines including ID bracelet, bed and alarms, visiting hours, pain management, procedures, bathroom and other care routines, personal items, smoking policy, room service/diet, and visiting hours. Information on how to activate the Rapid Response Team has been discussed. Patient/Family are encouraged to report perceived risks to care and to ask questions if they do not understand what they are told or what they should do.
[2025-02-17] MEDS: KETOROLAC 15 MG/ML VIAL (*BKC) IV PUSH (17:13)
[2025-02-17] MEDS: SENNA/DOCUSATE SODIUM TABLET 2 TAB PO (17:13)
[2025-02-17] MEDS: oxyCODONE/ACETAMINOPHEN (*CRX) 10-325 MG TABLET 1 TAB PO (17:29)
[2025-02-17] MEDS: FAMOTIDINE 20 MG TABLET PO (21:14)
[2025-02-17] MEDS: ASPIRIN 325 MG ENTERIC TABLET PO (21:14)
[2025-02-17] MEDS: oxyCODONE/ACETAMINOPHEN (*CRX) 5-325 MG TABLET 1 TABLET PO (21:21)
[2025-02-18] MEDS: KETOROLAC 15 MG/ML VIAL (*BKC) IV PUSH ×3 (00:03→13:05)
[2025-02-18 01:12] VITALS: BP 103/60; PULSE 73; RESP 20; TEMP 36.3; O2SAT 99
[2025-02-18] MEDS: ceFAZolin 2 GM in SODIUM CHLORIDE 0.9% IV 50 ML 100 ML IVPB (05:31)
[2025-02-18] MEDS: oxyCODONE/ACETAMINOPHEN (*CRX) 5-325 MG TABLET 1 TABLET PO (05:34)
[2025-02-18 06:08] LABS: Hematocrit 33.3 % (37.0-47.0); Hemoglobin 11.0 g/dL (12.0-15.0); Immature Granulocyte Percent A 1.0 % (0-0.5); Lymphocytes Absolute Auto 1.35 K/mm3 (0.9-3.2); Mean Corpuscular HGB Conc 33.0 g/dl (32-36); Mean Corpuscular Hemoglobin 30.1 pg (26-34); Mean Corpuscular Volume 91.0 fl (80-100); Nucleated Red Blood Cells Absolute Auto 0.000 K/mm3 (0.0-0.012); Nucleated Red Blood Cells Perc 0.0 % (0.0-0.2); Platelet Count Result 295 k/mm3 (150-375); Red Blood Count 3.66 M/mm3 (4.2-5.4); White Blood Count 10.4 K/mm3 (4.5-10.0)
[2025-02-18 06:20] VITALS: BP 95/60; PULSE 74; RESP 20; TEMP 36.3; O2SAT 98
[2025-02-18 06:29] LABS: Anion Gap 7 mmol/L (4-12); Blood Urea Nitrogen 16 mg/dL (7-17); Calcium 8.4 mg/dL (8.4-10.2); Carbon Dioxide 27 mmol/L (22-30); Chloride 96 mmol/L (98-107); Estimated CRCL calculation 79 ml/min; Estimated Glomerular Filt Rate > 60; Glucose 90 mg/dL (65-110); Potassium 4.1 mmol/L (3.4-5.0); Sodium 130 mmol/L (137-145)
[2025-02-18 08:10] VITALS: BP 102/70; PULSE 72; RESP 18; TEMP 36.8; O2SAT 100
[2025-02-18] MEDS: FAMOTIDINE 20 MG TABLET PO (08:39)
[2025-02-18] MEDS: ESCITALOPRAM OXALATE 10 MG TABLET 20 MG PO (08:40)
[2025-02-18] MEDS: ASPIRIN 325 MG ENTERIC TABLET PO (08:40)
[2025-02-18] MEDS: buPROPion HCL XL (24 HR) 150 MG TABCR PO (08:40)
[2025-02-18] MEDS: SENNA/DOCUSATE SODIUM TABLET 2 TAB PO (08:40)
[2025-02-18 08:42] VITALS: BP 115/73
--- NOTE | 2025-02-18 13:09 | PM.PNORT ---
Progress Note: A&P Assessment and Plan (1) Status post total left knee replacement: Code(s): Z96.652 - Presence of left artificial knee joint Status: Acute Assessment and Plan: POD 1 DOING WELL. OK TO DC HOME. SHE WILL START HER ON THIS SUNDAY. SHE WILL F/U IN 3 WEEKS HISTORY, EXAM AND RADIOGRAPHS REVIEWED WITH THE PATIENT. REFERRING PHYSICIAN RECORDS AND IMAGES REVIEWED. CONDITION, NATURE, ETIOLOGY AND COURSE OF NATURAL HISTORY REVIEWED. CONSERVATIVE AND OPERATIVE TREATMENT OPTIONS REVIEWED WELL THE RISKS AND BENEFITS OF EACH. Subjective Subjective Date/Time Seen: 02/18/25 13:09 Interval history: POD 1 DOING WELL. NO CALF PAIN, GOOD PROGRESS WITH PT, PAIN WELL CONTROLLED Exam Extrem: Other: VSS AFEBRILE DRESSING DRY NV INTACT CALF SOFT NON TENDER, NEG HOMANS SIGN Objective Data Vital Signs Vital Signs: Vital Signs - 24 hr 02/17/25 15:10 02/17/25 15:25 02/17/25 15:40 Temperature 36.2 C L Pulse Rate 85 87 86 Respiratory Rate 15 14 14 Blood Pressure 98/70 L 138/88 134/89 Pulse Oximetry 100 100 100 Oxygen Delivery Simple Face Mask Simple Face Mask Simple Face Mask Oxygen Flow Rate 8 8 8 02/17/25 15:55 02/17/25 16:10 02/17/25 16:25 Temperature Pulse Rate 82 82 84 Respiratory Rate 14 14 16 Blood Pressure 132/80 132/80 132/80 Pulse Oximetry 95 94 94 Oxygen Delivery Room Air Room Air Room Air Oxygen Flow Rate 02/17/25 17:17 02/17/25 17:30 02/17/25 17:45 Temperature 36.5 C 36.5 C Pulse Rate 91 90 Respiratory Rate 16 16 Blood Pressure 135/85 138/82 Pulse Oximetry 100 100 Oxygen Delivery Room Air Oxygen Flow Rate 02/17/25 18:15 02/17/25 21:14 02/17/25 22:13 Temperature 36.9 C 36.3 C L Pulse Rate 80 86 Respiratory Rate 16 20 Blood Pressure 131/76 115/76 Pulse Oximetry 98 99 Oxygen Delivery Room Air Oxygen Flow Rate 02/18/25 01:12 02/18/25 06:20 02/18/25 08:10 Temperature 36.3 C L 36.3 C L 36.8 C Pulse Rate 73 74 72 Respiratory Rate 20 20 18 Blood Pressure 103/60 95/60 L 102/70 Pulse Oximetry 99 98 100 Oxygen Delivery Oxygen Flow Rate 02/18/25 08:17 02/18/25 08:42 02/18/25 10:19 Temperature Pulse Rate Respiratory Rate Blood Pressure 115/73 Pulse Oximetry Oxygen Delivery Room Air Room Air Oxygen Flow Rate Intake/Output Intake/Output: Intake & Output 02/15/25 02/16/25 02/17/25 02/18/25 22:59 23:59 23:59 23:59 Intake Total 875 300 Balance 875 300 Meds/Results Medications: Active Medications Generic Name Dose Route Start Last Admin Trade Name Freq PRN Reason Stop Dose Admin Acetaminophen 500 mg 02/17/25 16:35 Acetaminophen 500 Mg Tablet PO Q6H PRN Pain Rated 1-3 Aspirin 325 mg 02/17/25 21:00 02/18/25 08:40 Aspirin 325 Mg Enteric Tablet PO 325 mg Q12HR ROOSEVELT Administration Bupropion HCl 150 mg 02/18/25 09:00 02/18/25 08:40 Bupropion Hcl Xl (24 Hr) 150 Mg Tabcr PO 150 mg DAILY ROOSEVELT Administration Diazepam 5 mg 02/17/25 16:35 Diazepam (*Crx) 5 Mg Tablet PO Q8H PRN Spasms Diphenhydramine HCl 25 mg 02/17/25 16:35 Diphenhydramine Hcl Inj 50 Mg/Ml Vial IV PUSH Q6H PRN Itching Escitalopram Oxalate 20 mg 02/18/25 09:00 02/18/25 08:40 Escitalopram Oxalate 10 Mg Tablet PO 20 mg DAILY ROOSEVELT Administration Famotidine 20 mg 02/17/25 21:00 02/18/25 08:39 Famotidine 20 Mg Tablet PO 20 mg Q12HR ROOSEVELT Administration Hydrochlorothiazide 12.5 mg 02/18/25 09:00 02/18/25 09:02 Hydrochlorothiazide 12.5 Mg Capsule PO Not Given DAILY ROOSEVELT Hydromorphone HCl 1 mg 02/17/25 16:35 Hydromorphone Hcl Inj (*Crx) 1 Mg/Ml Syr IV PUSH Q2H PRN Breakthrough Pain Rated 7-10 or NPO Hydromorphone HCl 0.5 mg 02/17/25 16:35 Hydromorphone Hcl Inj (*Crx) 1 Mg/Ml Syr IV PUSH Q2H PRN Breakthrough Pain Rated 4-6 or NPO Cefazolin Sodium 2 gm/ Sodium 50 mls @ 100 mls/hr 02/17/25 22:00 02/18/25 05:31 Chloride IVPB 02/18/25 14:29 100 mls/hr Q8HR ROOSEVELT Administration Ibuprofen 800 mg in 200 mls @ 400 mls/hr 02/17/25 16:35 Caldolor 800 Mg/200 Ml IVPB Q6H PRN Breakthrough Pain Rated 1-3 or NPO Ketorolac Tromethamine 15 mg 02/17/25 18:00 02/18/25 13:05 Ketorolac 15 Mg/Ml Vial (*Bkc) IV PUSH 02/18/25 18:01 15 mg Q6HR ROOSEVELT Administration Lisinopril 20 mg 02/18/25 09:00 02/18/25 09:02 Lisinopril 20 Mg Tablet PO Not Given DAILY ROOSEVELT Lorazepam 0.5 mg 02/17/25 16:35 Lorazepam (*Crx) 0.5 Mg Tablet PO Q6H PRN Anxiety Metformin HCl 500 mg 02/18/25 09:00 02/18/25 08:40 Metformin Hcl 500 Mg Tablet PO 500 mg DAILY ROOSEVELT Administration Naloxone HCl 0.1 mg 02/17/25 16:35 Naloxone Hcl 0.4 Mg/Ml Vial IV PUSH Q2M PRN Opiate Reversal Ondansetron HCl 4 mg 02/17/25 16:35 Ondansetron Inj 4 Mg/2 Ml Vial IV PUSH Q4H PRN Nausea And Vomiting Oxycodone/Acetaminophen 1 tablet 02/17/25 16:35 02/18/25 05:34 Oxycodone/Acetaminophen (*Crx) 5-325 Mg Tablet PO 1 tablet Q4H PRN Administration Pain Rated 4-6 Oxycodone/Acetaminophen 1 tab 02/17/25 16:35 02/17/25 17:29 Oxycodone/Acetaminophen (*Crx) 10-325 Mg Tablet PO 1 tab Q6H PRN Administration Pain Rated 7-10 Polyethylene Glycol 17 gm 02/18/25 09:00 02/18/25 08:41 Polyethylene Glycol 3350 17 Gm Powd.Pack PO 17 gm QAM ROOSEVELT Administration Senna/Docusate Sodium 2 tab 02/17/25 17:00 02/18/25 08:40 Senna/Docusate Sodium Tablet PO 2 tab BID ROOSEVELT Administration Radiology Results: ITS Impressions Knee X-Ray 02/17/25 15:29 IMPRESSION: 1. Recent left total knee arthroplasty. Labs Labs: Laboratory Results - last 24 hr 02/17/25 02/17/25 02/18/25 15:18 17:17 05:36 WBC 10.4 H RBC 3.66 L Hgb 11.0 L Hct 33.3 L MCV 91.0 MCH 30.1 MCHC 33.0 RDW 13.1 Plt Count 295 MPV 9.1 Immature Gran % (Auto) 1.0 H Neut % (Auto) 76.9 H Lymph % (Auto) 13.0 L [place] % (Auto) 8.5 Eos % (Auto) 0.3 Baso % (Auto) 0.3 Lymph # (Auto) 1.35 [place] # (Auto) 0.9 H Eos # (Auto) 0.0 Baso # (Auto) 0.0 Abs Immat Gran (auto) 0.10 H Absolute Neuts (auto) 8.0 H Absolute Nucleated RBC 0.000 Nucleated RBC % 0.0 Sodium 130 L Potassium 4.1 Chloride 96 L Carbon Dioxide 27 Anion Gap 7 BUN 16 Creatinine 0.73 Estim Creat Clear Calc 79 Estimated GFR > 60 Glucose 90 POC Capillary Glucose 108 H Calcium 8.4 Blood Type O Positive Antibody Screen Negative
== END 2025-02-18 14:08 | disposition home or self-care (01) ==
LOC: ANHSURGERY 13:03 → ANH3MEDSUR 16:37
PROVIDERS: PCP Registered Nurse; Visit Provider Orthopaedic Surgery
PROC: (CPT 27447; principal; 2025-02-17 12:00)
DX: M17.12 Unilateral primary osteoarthritis, left knee (principal); G89.18 Other acute postprocedural pain; I10 Essential (primary) hypertension; R53.83 Other fatigue; F41.8 Other specified anxiety disorders; G89.29 Other chronic pain; E66.9 Obesity, unspecified; Z68.37 Body mass index [BMI] 37.0-37.9, adult; Z79.51 Long term (current) use of inhaled steroids; Z79.84 Long term (current) use of oral hypoglycemic drugs; Z79.85 Long-term (current) use of injectable non-insulin antidiabetic drugs; Z98.890 Other specified postprocedural states; Z80.3 Family history of malignant neoplasm of breast; Z82.49 Family history of ischemic heart disease and other diseases of the circulatory system
CPT/HCPCS: 64447; 27447; 36415; 73560; 80048; 82948; 85025; 86850; 86900; 86901; 97110; 97161; 97165; 97530; J0690; A9270; C1713; C1776; J0166; J1100; J1171; J1200; J1885; J2250; J2270; J2405; J2704; J2795; J3010; J3290; J3373; J7120

== ENCOUNTER 2025-03-24 14:44 | Outpatient (CLI) | payer OTHER, SELFPAY ==
--- NOTE | ~2025-03-24 | MM_ITS ---
EXAMINATION: MM screening amanda BI w ximena HISTORY: Screening. Bilateral reduction mammoplasty. TECHNIQUE: Craniocaudal and mediolateral oblique 3-D tomosynthesis images were obtained and synthetic 2-D images were generated. CAD analysis was submitted and interpreted. COMPARISON: 2004 BREAST PARENCHYMAL COMPOSITION: Not Dense: The breasts are almost entirely fatty FINDINGS: No suspicious masses are seen. There are no suspicious calcifications. Postop changes are seen. No unexplained architectural distortion is seen. There are no skin or nipple abnormalities identified. There is no adenopathy seen on the images submitted. IMPRESSION: No mammographic evidence to suggest malignancy is seen. The patient may return to screening mammography as per ACR guidelines. BI-RADS 2 - Benign. Reviewed, dictated and finalized at location C. FITTER
== END 2025-03-24 14:45 | disposition home or self-care (01) ==
LOC: MICIMG 14:45
PROVIDERS: PCP Registered Nurse; Visit Provider Obstetrics & Gynecology
DX: Z12.31 Encounter for screening mammogram for malignant neoplasm of breast (principal)
CPT/HCPCS: 77063; 77067